=== PATIENT | male | born 1945 | race Caucasian/White ===

== ENCOUNTER 2017-07-12 13:47 | Emergency (ER) | payer MEDICARE ==
[2017-07-12 14:23] LABS: #Basophils 0.1 thou/uL (0.0-0.2); #Eosinphils 0.1 thou/uL (0.0-0.7); #Lymphocytes 2.3 thou/uL (1.20-3.40); #Monocytes 0.9 thou/uL (0.11-0.59); #Neutrophils 8.6 thou/uL (1.40-6.50); %Basophils 0.6 % (0.0-1.0); %Eosinophils 1.1 % (0.0-10.0); %Lymphocytes 19.3 % (21.0-51.0); %Monocytes 7.6 % (0.0-10.0); %Neutrophils 71.5 % (42.0-75.0); Hemoglobin 13.1 g/dL (14.0-18.0); Mean Corpuscular HGB CONC 32.5 g/dL (32.0-36.0); Mean Corpuscular Volume 95.5 fl (80.0-94.0); Platelet Count 245 thou/uL (130-400); RBC Distribution Width 11.8 % (11.5-14.5); Red Blood Cell (RBC) Count 4.23 mill/uL (4.70-6.10); White Blood Cell (WBC) Count 12.1 thou/uL (4.8-10.8)
--- NOTE | 2017-07-12 14:34 | RAD ---
LEFT FOOT THREE VIEWS: History: Left foot wound. Comparison: None. FINDINGS: There is left foot soft tissue swelling. Lisfranc alignment is maintained. No fracture. Joint spaces are preserved. Mild degenerative change in the first digit. Bony hypertrophy at the Achilles tendon insertion site. IMPRESSION: Nonspecific soft tissue swelling. POS: CARL
[2017-07-12 14:44] LABS: ALT (SGPT) 13 U/L (8-55); AST (SGOT) 15 U/L (5-34); Albumin 3.9 g/dL (3.4-4.8); Alkaline Phosphatase 32 U/L (40-150); Anion Gap 16 mmol/L (10-20); BUN (Urea Nitrogen) 17 mg/dL (8.4-25.7); Bilirubin, Total 1.5 mg/dL (0.2-1.2); Calc. Creatinine Clearance 0 mL/min (70-130); Calcium 9.4 mg/dL (7.8-10.44); Carbon Dioxide 20 mmol/L (23-31); Chloride 101 mmol/L (98-107); Estimated GFR-MDRD 63; Globulin 2.9 g/dL (2.4-3.5); Glucose 318 mg/dL (83-110); Potassium 4.4 mmol/L (3.5-5.1); Protein, Total 6.8 g/dL (5.8-8.1); Sodium 133 mmol/L (136-145)
[2017-07-12] MEDS ORDERED: Clindamycin/D5W 600 mg/50 ml Premix Bag ONE (15:05)
== END 2017-07-12 16:21 | disposition home or self-care (01) ==
LOC: ERS 13:47
DX: E11.621 Type 2 diabetes mellitus with foot ulcer (principal); L97.529 Non-pressure chronic ulcer of other part of left foot with unspecified severity; I10 Essential (primary) hypertension; E78.5 Hyperlipidemia, unspecified; L03.116 Cellulitis of left lower limb
CPT/HCPCS: 36415; 80053; 85025; 96365; J3490

== ENCOUNTER 2017-07-18 09:02 | Inpatient (IN) | payer MEDICARE ==
[2017-07-18 10:41] LABS: #Eosinphils 0.1 thou/uL (0.0-0.7); #Lymphocytes 2.1 thou/uL (1.20-3.40); #Monocytes 0.9 thou/uL (0.11-0.59); #Neutrophils 9.2 thou/uL (1.40-6.50); %Basophils 0.3 % (0.0-1.0); %Eosinophils 1.2 % (0.0-10.0); %Lymphocytes 16.9 % (21.0-51.0); %Monocytes 7.4 % (0.0-10.0); %Neutrophils 74.2 % (42.0-75.0); Hemoglobin 12.6 g/dL (14.0-18.0); Mean Corpuscular HGB CONC 32.2 g/dL (32.0-36.0); Mean Corpuscular Hemoglobin 30.4 pg (27.0-31.0); Mean Corpuscular Volume 94.6 fl (80.0-94.0); Platelet Count 254 thou/uL (130-400); RBC Distribution Width 11.9 % (11.5-14.5); Red Blood Cell (RBC) Count 4.13 mill/uL (4.70-6.10); White Blood Cell (WBC) Count 12.3 thou/uL (4.8-10.8)
[2017-07-18] MEDS ORDERED: cefTRIAXone\\ROCEPHIN 2 GM in Sodium Chloride 0.9% 100 ML IVPB SCH (10:45)
[2017-07-18 11:11] LABS: ALT (SGPT) 11 U/L (8-55); AST (SGOT) 16 U/L (5-34); Albumin 3.8 g/dL (3.4-4.8); Alkaline Phosphatase 29 U/L (40-150); Anion Gap 14 mmol/L (10-20); BUN (Urea Nitrogen) 14 mg/dL (8.4-25.7); Calc. Creatinine Clearance 89 mL/min (70-130); Calcium 9.6 mg/dL (7.8-10.44); Carbon Dioxide 24 mmol/L (23-31); Chloride 101 mmol/L (98-107); Estimated GFR-MDRD 68; Globulin 2.9 g/dL (2.4-3.5); Glucose 218 mg/dL (83-110); Potassium 4.3 mmol/L (3.5-5.1); Protein, Total 6.7 g/dL (5.8-8.1); Sodium 135 mmol/L (136-145)
--- NOTE | 2017-07-18 12:12 | ULT ---
LEFT LOWER EXTREMITY VENOUS DOPPLER ULTRASOUND: Date: 07/18/17 HISTORY: 71-mmol1pnd male with history of left leg swelling. TECHNIQUE: Multiple longitudinal and transverse images of the left lower extremity venous system obtained using a multihertz linear array transducer. Real-time, color flow, and spectral waveform Doppler analysis u sed to evaluate the left lower extremity venous systems. FINDINGS: Images demonstrate no evidence of acute or old clot seen in the left common femoral, superficial femo ral, femoral profunda, popliteal, posterior tibial vein, post-trifurcation vein, or left greater saph enous vein. IMPRESSION: No evidence of left lower extremity deep venous thrombosis. POS: JC
[2017-07-18] MEDS ORDERED: Acetaminophen 325 MG TAB PO PRN (14:15)
[2017-07-18] MEDS ORDERED: Ondansetron HCl/PF 4 MG/2 ML Vial IVP PRN ×2 (14:15→14:55)
[2017-07-18] MEDS ORDERED: Sodium Chloride 0.9% 1,000 ML IV SCH (14:15)
[2017-07-18] MEDS ORDERED: Ondansetron ODT 4 MG TAB PO PRN ×2 (14:15→14:55)
[2017-07-18] MEDS ORDERED: HYDROcodone/Acetaminophen 5/325 mg Tablet PO PRN ×2 (14:16)
[2017-07-18 14:23] VITALS: BMI 32.5
[2017-07-18] MEDS ORDERED: Dextrose 50% Abboject 50 ML SYRINGE SLOW IVP PRN (14:55)
[2017-07-18] MEDS ORDERED: cloNIDine 0.1 MG TAB PO PRN (14:55)
[2017-07-18] MEDS ORDERED: HumaLOG 300 UNITS/3 ML VIAL SC PRN (14:55)
[2017-07-18] MEDS ORDERED: hydrALAZINE 20 MG/ML VIAL SLOW IVP PRN (14:55)
[2017-07-18] MEDS ORDERED: traMADol HCl 50 MG TAB PO PRN (14:55)
[2017-07-18] MEDS ORDERED: Dextrose 5% in Water 1,000 ML IV PRN (14:55)
--- NOTE | 2017-07-18 16:11 | HP ---
DATE OF ADMISSION: 07/18/2017 PRIMARY CARE PHYSICIAN: Dr. Troy Hugo. CHIEF COMPLAINT: Left foot infection. HISTORY OF PRESENT ILLNESS: This is a 71-year-old male who presents to [facility] complaining of persistent left foot redness, discoloration to the toes and heel with r ed streaks up the lower leg. The patient states that the symptoms began as a small scratch on the lo wer leg approximately 3 weeks prior to this evaluation at which point patient sought medical attentio n and was placed on oral antibiotic therapy. The patient with a significant history of diabetes chan itus type 2 since diagnosed in the with poor control, stating his last hemoglobin A1c was in e 11 range. The patient was seen at the [facility] and received a single dose of IV antibiotic therapy and continued on oral antibiotics, following up with his primary care provider . The patient noticed progression of the ulceration to the heel expanding with some dark discolorati on as well as black areas of the great and second toe on the left foot. The patient denied any speci fic chills, fever, constitutional symptoms. The patient does state that he has had difficulty trimmi ng the nails on his foot with decreased vision due to longstanding uncontrolled diabetes. The patien t presented back to the emergency room, taking Cleocin for his home antibiotic regimen with worsening left foot swelling and redness. The patient's ex- became concerned after seeing the foot and br ought him to the emergency room for evaluation. In the emergency room, patient underwent general matteo luation including plain radiographs of the foot dated 07/12/2017 showing no osseous destruction. The patient received IV Rocephin and vancomycin and was referred to the Hospitalist Service for admissio n. PAST MEDICAL HISTORY: 1. Coronary artery disease. 2. Cardiomyopathy, status post AICD placement. 3. Peripheral vascular disease. 4. Peripheral neuropathy secondary to advanced diabetes mellitus type 2. 5. Diabetic retinopathy. 6. Diabetes mellitus type 2 on insulin requiring, diagnosed in the , uncontrolled. 7. Hyperlipidemia. 8. Hypertension. 9. Profound hearing loss. PAST SURGICAL HISTORY: 1. Status post coronary artery bypass grafting x4 vessels. 2. Status post hernia repair. 3. Status post AICD/pacemaker placement. CURRENT MEDICATIONS: 1. Norvasc 5 mg 1 tablet p.o. daily. 2. Lasix 40 mg p.o. daily p.r.n. 3. Gabapentin 100 mg 1 tab p.o. daily. 4. Amaryl 4 mg p.o. daily. 5. Glargine insulin 30 units subcutaneously daily. 6. Lisinopril 30 mg p.o. daily. 7. Lovastatin 40 mg p.o. daily. 8. Metformin 500 mg p.o. bedtime. ALLERGIES: No known drug allergies. FAMILY HISTORY: Positive for coronary artery disease and hypertension. SOCIAL HISTORY: Patient is , resides in the [place], [place] area. 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 No current alcohol, tobacco or illicit drug use. REVIEW OF SYSTEMS: The following complete review of systems was negative, unless otherwise mentioned in the HPI or below: Constitutional: Weight loss or gain, ability to conduct usual activities. Skin: Rash, itching. Eyes: Double vision, pain. ENT/Mouth: Nose bleeding, neck stiffness, pain, tenderness. Cardiovascular: Palpitations, dyspnea on exertion, orthopnea. Respiratory: Shortness of breath, wheezing, cough, hemoptysis, fever or night sweats. Gastrointestinal: Poor appetite, abdominal pain, heartburn, nausea, vomiting, constipation, or diarr hea. Genitourinary: Urgency, frequency, dysuria, nocturia. Musculoskeletal: Pain, swelling. Neurologic/Psychiatric: Anxiety, depression. Allergy/Immunologic: Skin rash, bleeding tendency. Otherwise negative except as stated per HPI. PHYSICAL EXAMINATION: VITAL SIGNS: On admission, blood pressure 121/70, pulse 82, respiratory rate 26, temperature 98.5 de grees Fahrenheit, O2 saturation is 96% on room air. GENERAL APPEARANCE: This is a 71-year-old male with profound hearing loss, alert, responsi ve, in no acute distress. HEENT: Pupils are equal, round, and reactive to light and accommodation. Extraocular muscles are in tact. No scleral icterus, no conjunctival injection. Nares patent. OP is clear. Teeth in fair rep air. NECK: Supple, no cervical adenopathy, no thyromegaly, no carotid bruits, no JVD appreciated. Cervic al spine is with full active and passive range of motion. No meningeal signs appreciated. CHEST: Lungs are clear to auscultation bilaterally. CARDIOVASCULAR: S1 and S2 with distant heart sounds. Left upper chest wall with AICD/pacemaker dalia ce. ABDOMEN: Protuberant, soft, nontender, and nondistended. Bowel sounds are positive in all four quad rants. There is no hepatosplenomegaly, no abdominal bruits, no rebound or guarding appreciated. EXTREMITIES: Left lower extremity with erythema to the ankle region. Positive edema of the same reg ion. Approximate quarter sized ulcer of the left heel with black discoloration of the base. Periphe ral erythema and raised borders noted. Positive tenderness to palpation in the calcaneal region. Bl ack eschar noted of the left great and second toe with edema desquamation and tenderness to palpation . Jesus region with erythematous streaks. Pulses are diminished at the dorsalis pedis and posterior tibial arteries on the left lower extremity. Hair loss noted on bilateral lower extremities. NEUROLOGIC: Cranial nerves II-XII are grossly intact with the exception of profound hearing loss. P atient not observed ambulatory during this exam. PERTINENT LABORATORY DATA AND X-RAY FINDINGS: Creatinine 1.07 with estimated GFR of 68, glucose 218, lactic acid level 2.0. Calcium 9.6, total bilirubin 2.0. LFT: AST 16, ALT of 11, alkaline phospha tase 29. CBC showed white blood cell count of 12.3, hemoglobin 13, hematocrit 39, platelet count 254 with normal differential. Left lower extremity venous Doppler study dated 07/18/2017 showed no DVT. Plain radiographs of the left foot dated 07/12/2017 showed nonspecific soft tissue edema. ASSESSMENT AND PLAN: 1. Left diabetic foot ulceration/gangrene. The patient will be admitted to the medical floor. We w ill continue vancomycin 1 gram IV q.12 hours with additional Rocephin 2 grams IV q.24 hours. We will consult Wound Care Service for local care and evaluation. Consult General Surgery Service for poten tial surgical intervention and potential amputation. Blood cultures pending x2. Continue general mccain pportive measures and pain control as clinically indicated. 2. Diabetes mellitus type 2 with advanced diabetic neuropathy and retinopathy. We will continue selene e insulin regimen of glargine 30 units subcutaneously daily. Insulin sliding scale for reflexive cov erage. Check A1c level in the a.m. Accu-Cheks a.c. and at bedtime. 3. Hypertension. Resume home antihypertensive regimen and monitor clinical response. 4. Peripheral neuropathy. Continue gabapentin 100 mg p.o. daily. 5. Coronary artery disease, chronic and stable. We will continue home medication regimen. No evide nce to suggest clinical decompensation. 6. Prophylaxis. Lovenox 40 mg subcutaneously q.24 hours, Pepcid 20 mg p.o. b.i.d. Wound Care consu lt pending. 7. Code status is FULL. Surrogate medical decision maker is patient's son.
[2017-07-18] MEDS: HumaLOG 300 UNITS/3 ML VIAL SC PRN (17:28)
[2017-07-18] MEDS: metFORMIN 500 MG TAB PO SCH (17:28)
[2017-07-18] MEDS: Famotidine 20 MG TAB PO SCH (20:36)
[2017-07-18] MEDS ORDERED: FLU VACC TS2017-18 (>65YR) 0.5 ML SYRINGE IM ONE (21:00)
[2017-07-18] MEDS: Vancomycin HCl 1 GM in Premix Bag 1 BAG IVPB SCH (22:36)
[2017-07-19 05:15] LABS: Hemoglobin A1c 10.1 % (4.0-6.0)
[2017-07-19 05:25] LABS: ALT (SGPT) 10 U/L (8-55); AST (SGOT) 12 U/L (5-34); Albumin 3.5 g/dL (3.4-4.8); Alkaline Phosphatase 29 U/L (40-150); Anion Gap 12 mmol/L (10-20); BUN (Urea Nitrogen) 12 mg/dL (8.4-25.7); Bilirubin, Total 1.1 mg/dL (0.2-1.2); Calc. Creatinine Clearance 97 mL/min (70-130); Calcium 9.1 mg/dL (7.8-10.44); Carbon Dioxide 23 mmol/L (23-31); Chloride 103 mmol/L (98-107); Estimated GFR-MDRD 80; Globulin 2.7 g/dL (2.4-3.5); Glucose 272 mg/dL (83-110); Potassium 4.3 mmol/L (3.5-5.1); Protein, Total 6.2 g/dL (5.8-8.1); Sodium 134 mmol/L (136-145)
[2017-07-19 05:56] LABS: Eosinophils 3 % (0-10); Hemoglobin 12.1 g/dL (14.0-18.0); Lymphocytes 37 % (21-51); MDiff Complete? YES; Macrocytosis SLIGHT = 6-15 cells (100X) (0-5/hpf); Mean Corpuscular HGB CONC 33.2 g/dL (32.0-36.0); Mean Corpuscular Hemoglobin 31.5 pg (27.0-31.0); Mean Corpuscular Volume 94.9 fl (80.0-94.0); Mean Platelet Volume 8.5 fL (7.4-10.4); Monocytes 4 % (0-10); Neutrophil 56 % (42-75); PLT Morphology Comment Appears Adequate; Platelet Count 233 thou/uL (130-400); RBC Distribution Width 11.8 % (11.5-14.5); Red Blood Cell (RBC) Count 3.84 mill/uL (4.70-6.10); White Blood Cell (WBC) Count 9.8 thou/uL (4.8-10.8)
[2017-07-19] MEDS: Glimepiride 4 MG TAB PO SCH (07:59)
[2017-07-19] MEDS: Insulin Detemir 100 UNITS/ML 30 UNITS in Pre-Filled Syringe 1 EACH SC SCH (08:39)
[2017-07-19] MEDS: Enoxaparin Sodium 40 MG/0.4 ML SYRINGE SC SCH (08:41)
[2017-07-19] MEDS: Amlodipine 5 MG TAB PO SCH (08:42)
[2017-07-19] MEDS: Famotidine 20 MG TAB PO SCH ×2 (08:42→20:27)
[2017-07-19] MEDS: Gabapentin 100 MG CAP PO SCH (08:42)
[2017-07-19] MEDS: Atorvastatin Calcium 10 MG TAB PO SCH (08:42)
[2017-07-19] MEDS: Lisinopril 10 MG TAB PO SCH (08:43)
[2017-07-19] MEDS ORDERED: Non-Formulary Item 1 EACH (Insulin Glargine,Hum.Rec.Anlog 30 UNIT) SQ SCH (09:00)
[2017-07-19] MEDS: Vancomycin HCl 1 GM in Premix Bag 1 BAG IVPB SCH ×2 (11:52→23:36)
--- NOTE | 2017-07-19 12:58 | CON ---
DATE OF CONSULTATION: 07/19/2017 REQUESTING PHYSICIAN: Dr. Raoul Beasley. PRIMARY CARE PHYSICIAN: Dr. Troy Hugo. CHIEF COMPLAINT: Dry gangrenous changes involving the left foot. HISTORY OF PRESENT ILLNESS: The patient is a 71-year-old diabetic man, who underwent coronary artery bypass grafting several years ago. He has also undergone AICD implantation for cardiomyopathy. Ove r the last 1-2 months, he has been having pain involving his left foot. He denies any antecedent cla udication or rest pain symptoms. To the best of his knowledge, he had no local trauma. Initially, h e began developing ulceration, progressing to dry dark eschar on the heel of that foot. He then bega n developing similar eschars on the tips of the first and second toes. He was started on oral antibi otics about a week ago, but over the course of the week, the pain, redness, and swelling increased an d he presented to the emergency room here yesterday. He was started on IV Rocephin and vancomycin an d with that and leg elevation, the erythema and swelling in his foot have dramatically improved. The pain is improved only modestly. He denies any improvement in the pain with allowing his foot dangle dependently or with walking short distances. PAST MEDICAL HISTORY: Significant for his coronary artery disease, his cardiomyopathy with an AICD p lacement. He has peripheral neuropathy, macular degeneration and perhaps diabetic retinopathy, diabe perry, hyperlipidemia, hypertension, and hearing loss. HOME MEDICATIONS: His normal home medications are Norvasc 5 mg a day, Lasix 40 mg p.r.n. swelling, N eurontin 100 mg a day, Amaryl 4 mg a day, metformin 500 mg at bedtime. Glargine insulin 30 units sub cutaneously daily, lisinopril 30 mg a day, and lovastatin 40 mg a day. ALLERGIES: He denies any medical allergies. SOCIAL HISTORY: He does not smoke. FAMILY HISTORY: Significant for coronary artery disease and hypertension. REVIEW OF SYSTEMS: Negative for orthopnea, but positive for dyspnea on exertion at about class 2-3 l evel saying gets short of breath walking about 100 yards, but he is able to do his grocery shopping w ithout the use of a motorized scooter. Negative for any chest pain, pressure, or squeezing. Negativ e for any transient eyes, speech, facial, or extremity symptoms to suggest TIAs. It is positive for poor vision and poor hearing. PHYSICAL EXAMINATION: GENERAL: On exam, he is obviously hard of hearing. He is in no distress. VITAL SIGNS: Heart rate is 76, blood pressure 128/79, temperature 98.3, T-max over the last 24 hours has been 98.6. He has no obvious xanthelasma. NECK: No JVD. He has loud right carotid bruit. CARDIOVASCULAR: He has a regular rate and rhythm without any obvious murmur or gallop. He has a pal pable AICD generator in the left upper chest. He has a well-healed surgical scar, status post median sternotomy, and status post left lower extremity vein harvest. ABDOMEN: Soft and nontender without any obvious organomegaly, masses, or bruits. EXTREMITIES: He has easily palpable radial pulses bilaterally. His right femoral pulse is perhaps s lightly diminished. His left femoral pulse is dramatically diminished. Neither are associated with bruits. I was not able to palpate popliteal or pedal pulses. On the right side, capillary refill is about 1 to 1-1/2 seconds with fairly easily dopplerable dorsalis pedis and posterior tibial pulses a nd even a peroneal pulse unable to find. On the left side, his posterior tibial pulse is very faint. I was not able to find dorsalis pedis pulse. He has a very faint peroneal pulse. On the left side , he has some faint erythema and mild swelling. He has a fairly large eschar on the posteromedial as pect of his left heel and on the tips of the first and second toes with more advanced desiccation on the second toe than on the first. Capillary refill is 1-1/2-2 seconds. NEUROLOGIC EXAM: Grossly nonfocal. A foot x-ray from about a week ago had no obvious soft tissue de fects or osseous destruction. He has not had a chest x-ray this hospitalization as yet. LABORATORY AND X-RAY FINDINGS: Swab of his open wound on his left foot has rare white cells, 4 on sm ear, and a moderate growth of gram-negative bacillus on culture. Blood cultures drawn yesterday are no growth so far. White count was 12.3, hemoglobin 12.6, hematocrit 39.0, platelets 254,000. Electr olytes were normal. Glucose was 218, BUN 14, creatinine 1.07. Overnight, his BUN was 13 and creatin ine 0.93, but his glucose was 272 with all of his Accu-Cheks being in the mid to high 200 ranges. He moglobin A1c this morning was 10.1. IMPRESSION AND RECOMMENDATIONS: Peripheral vascular disease with ischemic tissue loss. The patient has adequate renal function. He at least has inflow disease. I have spoken with Dr. Alexandra about per forming an aortogram with runoffs to map out anatomy, and come up with a plan for revascularization f or limb salvage.
--- NOTE | 2017-07-19 13:51 | RAD ---
TWO VIEWS CHEST: COMPARISON: 11/17/07. HISTORY: Cardiomyopathy. FINDINGS: Stable sternotomy wires and a left-sided transvenous defibrillator. Normal cardiac silhouette. Pulm onary vessels and hilum are normal. Minimal blunting of the left costophrenic angle likely due to sm all effusion or atelectasis. Right costophrenic angle is clear. No consolidation or masses in the l maria esther parenchyma. No pneumothorax. No osseous abnormalities. IMPRESSION: Blunting of the left costophrenic angle as described above. POS: CARL
[2017-07-19] MEDS: cefTRIAXone\\ROCEPHIN 2 GM in Sodium Chloride 0.9% 100 ML IVPB SCH (15:24)
--- NOTE | 2017-07-19 17:06 | PDOC.PN ---
- Subjective Encounter Start Date: 07/19/17 Encounter Start Time: 17:00 Subjective: f/u for L foot/toe gangrene. Plan for vascular study to ascertain flow -: distally. c/o pain in foot and lower leg. No fever or chills. Currently on -: Vancomyin and Rocephin. - Objective Resuscitation Status: Resuscitation Status FULL:Full Resuscitation MAR Reviewed: Yes Vital Signs & Weight: Vital Signs (12 hours) Temp Pulse Resp BP BP Pulse Ox 07/19/17 08:43 128/79 07/19/17 08:42 76 07/19/17 08:25 98.3 F 76 18 128/79 98 07/19/17 08:00 98.3 F 76 18 98 Weight Admit Weight 207 lb 6.4 oz Weight 207 lb 14.4 oz I&O: 07/18/17 07/19/17 07/20/17 06:59 06:59 06:59 Intake Total 680 240 Balance 680 240 Result Diagrams: 07/19/17 04:41 07/19/17 04:41 Additional Labs: Accuchecks 07/19/17 07/19/17 07/18/17 12:02 04:25 20:30 POC Glucose 201 H 253 H 274 H 07/18/17 16:35 POC Glucose 231 H Microbiology 07/18/17 10:54 Foot - Pending Bacterial Culture - Preliminary Gram Negative Cristopher 07/18/17 10:31 Venous blood - Right Arm Blood Culture - Preliminary Specimen has been received and culture in progress. No Growth to date. 07/18/17 10:25 Venous blood - Left Hand Blood Culture - Preliminary Specimen has been received and culture in progress. No Growth to date. Laboratory Tests 07/19/17 04:41 Hemoglobin A1c 10.1 H Radiology Reviewed by me: Yes (PCXR - no acute process) Phys Exam - Physical Examination Constitutional: NAD HEENT: PERRLA, oral pharynx no lesions Neck: no JVD, supple Respiratory: no wheezing, clear to auscultation bilateral Cardiovascular: RRR Gastrointestinal: soft, non-tender, no distention, positive bowel sounds distal pulses of bilat LE's non-palpable LLE with dry gangrene great/2nd toe/heel Musculoskeletal: edema present Neurological: moves all 4 limbs Psychiatric: A&O x 3 Skin: normal turgor, cap refill <2 seconds Dx/Plan (1) Diabetic foot ulcer Code(s): E11.621 - TYPE 2 DIABETES MELLITUS WITH FOOT ULCER; L97.509 - NON- PRESSURE CHRONIC ULCER OTH PRT UNSP FOOT W UNSP SEVERITY Status: Acute Qualifiers: Diabetic foot ulcer location: toe Comment: Continue Vancomycin and Rocephin, local WCT, plan for surgical intervention after ascertaining distal flow, Hyperbaric therapy (2) Gangrene of left foot Code(s): I96 - GANGRENE, NOT ELSEWHERE CLASSIFIED Status: Acute Comment: See #1 (3) Peripheral vascular disease due to secondary diabetes Code(s): E13.51 - OTH DIABETES W DIABETIC PERIPHERAL ANGIOPATHY W/O GANGRENE Status: Chronic Comment: Aortogram with runoff planned 07/20/17 (4) Diabetes mellitus type II, uncontrolled Code(s): E11.65 - TYPE 2 DIABETES MELLITUS WITH HYPERGLYCEMIA Status: Chronic Qualifiers: Diabetes mellitus complication status: with circulatory complication Diabetes mellitus complication detail: with peripheral angiopathy with gangrene Comment: ISS, ADA, titrate Insulin regimen, dietitian counseling (5) Diabetic neuropathy Code(s): E11.40 - TYPE 2 DIABETES MELLITUS WITH DIABETIC NEUROPATHY, UNSP Status: Chronic Comment: See above - Plan continue antibiotics, PT/OT, foster care social worker Stable overall -: Continue Vancomycin and Rocephin -: Local WCT -: Appreciate Gen and Vasc surg assistance -: Aortogram with runoff 07/20/17 * AM lab: BMP * Morphine Sulfate 2mg IV q4h prn pain
[2017-07-19] MEDS: metFORMIN 500 MG TAB PO SCH (17:50)
[2017-07-19] MEDS: HumaLOG 300 UNITS/3 ML VIAL SC PRN (17:51)
[2017-07-19] MEDS ORDERED: Morphine 2 MG/ML SYRINGE SLOW IVP PRN (22:48)
[2017-07-19 22:52] LABS: Vancomycin, Trough 10.8 ug/mL
[2017-07-19] MEDS ORDERED: Vancomycin HCl 1.5 GM in Sodium Chloride 0.9% 250 ML 300 ML IVPB SCH (23:00)
[2017-07-19] MEDS: Vancomycin HCl 1.5 GM in Sodium Chloride 0.9% 250 ML 300 ML IVPB SCH (23:40)
[2017-07-20 05:56] LABS: Anion Gap 12 mmol/L (10-20); BUN (Urea Nitrogen) 13 mg/dL (8.4-25.7); Calc. Creatinine Clearance 94 mL/min (70-130); Calcium 9.2 mg/dL (7.8-10.44); Carbon Dioxide 24 mmol/L (23-31); Chloride 101 mmol/L (98-107); Estimated GFR-MDRD 77; Glucose 312 mg/dL (83-110); Potassium 4.3 mmol/L (3.5-5.1); Sodium 133 mmol/L (136-145)
[2017-07-20] MEDS: Glimepiride 4 MG TAB PO SCH (08:30)
[2017-07-20] MEDS: Lisinopril 10 MG TAB PO SCH (08:30)
[2017-07-20] MEDS: Amlodipine 5 MG TAB PO SCH (08:30)
[2017-07-20] MEDS: Atorvastatin Calcium 10 MG TAB PO SCH (08:30)
[2017-07-20] MEDS: Famotidine 20 MG TAB PO SCH ×2 (08:30→20:10)
[2017-07-20] MEDS: Enoxaparin Sodium 40 MG/0.4 ML SYRINGE SC SCH (08:30)
[2017-07-20] MEDS: Insulin Detemir 100 UNITS/ML 30 UNITS in Pre-Filled Syringe 1 EACH SC SCH (08:30)
[2017-07-20] MEDS: Gabapentin 100 MG CAP PO SCH (08:30)
--- NOTE | 2017-07-20 09:39 | CON ---
DATE OF CONSULTATION: 07/19/2017 HISTORY OF PRESENT ILLNESS: Mr. Mauricio Lezama is a very pleasant 71-year-old gentleman referred fo r evaluation for hyperbaric oxygen therapy. The patient's medical history is significant for diabete s mellitus and peripheral vascular disease. The patient is referred for evaluation for a trial of hy perbaric oxygen therapy to augment the healing of an ulceration of the left heel. The patient's ex-w south states that Mr. Lezama was seen in [place] in an emergency department and administered IV antib iotics on 06/24/2017. The patient was also placed on p.o. antibiotics. At a followup visit with his primary care physician, the patient was referred immediately to the Emergency Department at [facility] and at this time, the patient was given additional IV antibiotics and again placed on p.o. antibiotics. The patient's ex- states that yesterday she brought Mr. Lezama to the Emergency Department again because of erythema, edema, and pain of his left lower extremity and at this time being, patient was admitted for further evaluation and treatment. PAST MEDICAL HISTORY: 1. Coronary artery disease. 2. Cardiomyopathy, status post AICD placement. 3. Peripheral vascular disease. 4. Diabetes mellitus. 5. Hypertension. PAST SURGICAL HISTORY: 1. Coronary artery bypass grafting. 2. Herniorrhaphy. 3. AICD placement. 4. Penile implant. MEDICATIONS ON ADMISSION: Norvasc, Lasix, gabapentin, Amaryl, insulin, lisinopril, lovastatin and me tformin. ALLERGIES: No known diagnosed allergies. SOCIAL HISTORY: Negative for tobacco use. The patient admits to the consumption of 2 drinks per day for the past 8 years. FAMILY HISTORY: Significant for diabetes mellitus. The patient's father and mother were both diagno sed with diabetes mellitus. Family history is also significant for coronary artery disease. The pat glenda's father was diagnosed with coronary artery disease. PHYSICAL EXAMINATION: VITAL SIGNS: Stable and afebrile. GENERAL: A 71-year-old gentleman sitting on chair in hospital room in no acute distress. HEENT: Normocephalic, atraumatic. NECK: No nuchal rigidity. CHEST: Clear to auscultation. CARDIOVASCULAR: Regular rate and rhythm. ABDOMEN: Soft. EXTREMITIES: An ulceration of the left heel is present. An ulceration of the left great toe is also present in addition to an ulceration of the left second toe. Gangrenous changes are associated with each ulcerations. No serous or purulent drainage is associated with any of the wounds. No macerati on of the skin of the periwound of any of the wounds is noted. No significant edema of the left foot is appreciated on exam today. ASSESSMENT AND PLAN: A 71-year-old gentleman with past medical history significant for diabetes chan itus and peripheral vascular disease referred for evaluation for hyperbaric oxygen therapy to augment the healing of an ulceration of the left heel. The patient has ulcerations of the left great toe an d left second toe in addition to the left heel ulceration. The patient is to undergo aortogram with left lower extremity runoff tomorrow. A TCOM study will then be obtained along with chamber study if necessary. Transthoracic echo will also be obtained to ensure that the patient is a suitable candid ate for a trial of hyperbaric oxygen therapy. The patient denies any history of seizures, crushing c hest trauma, pneumothorax, recent retinal surgery, blood disorders including hereditary spherocytosis or the administration of any chemotherapeutic agents which would contraindicate a trial of hyperbari c oxygen therapy. The patient understands the risks and benefits of hyperbaric oxygen therapy and wi shes to proceed. The patient will be treated at 2.0 YULIANA with each session to consist of 90 minutes. The length of therapy will depend upon the patient's response to therapy in conjunction with serial clinical exams.
[2017-07-20] MEDS: cefTRIAXone\\ROCEPHIN 2 GM in Sodium Chloride 0.9% 100 ML IVPB SCH (10:41)
[2017-07-20] MEDS: Vancomycin HCl 1.5 GM in Sodium Chloride 0.9% 250 ML 300 ML IVPB SCH ×2 (11:45→23:01)
[2017-07-20] MEDS ORDERED: Iopamidol 370 76% 50 ML VIAL FS ONE (11:55)
[2017-07-20] MEDS ORDERED: Fentanyl 100 MCG/2 ML VIAL ONE (14:04)
[2017-07-20] MEDS ORDERED: Midazolam HCl 2 mg/2 ml Vial ONE ×2 (14:04→15:04)
--- NOTE | 2017-07-20 14:42 | PDOC.PN ---
- Subjective Encounter Start Date: 07/20/17 Encounter Start Time: 14:51 Subjective: No complaints today. Reports pain well controlled. -: No acute events overnight. - Objective Resuscitation Status: Resuscitation Status FULL:Full Resuscitation MAR Reviewed: Yes Vital Signs & Weight: Vital Signs (12 hours) Temp Pulse Resp BP BP Pulse Ox 07/20/17 08:30 75 128/79 07/20/17 08:00 98.3 F 78 16 137/75 95 Weight Admit Weight 207 lb 6.4 oz Weight 207 lb 14.4 oz I&O: 07/19/17 07/20/17 07/21/17 06:59 06:59 06:59 Intake Total 680 1080 Balance 680 1080 Result Diagrams: 07/19/17 04:41 07/20/17 05:04 Additional Labs: Accuchecks 07/20/17 07/20/17 07/19/17 11:16 04:11 20:31 POC Glucose 275 H 318 H 259 H 07/19/17 16:56 POC Glucose 276 H Phys Exam - Physical Examination Constitutional: NAD HEENT: PERRLA, moist MMs, sclera anicteric Neck: supple, full ROM Respiratory: no wheezing, no rales, no rhonchi, clear to auscultation bilateral Cardiovascular: RRR, no significant murmur, no rub Gastrointestinal: soft, non-tender, no distention, positive bowel sounds Musculoskeletal: no edema 1+ pulses b/l Gangrene L first and second toes Neurological: non-focal, moves all 4 limbs Psychiatric: normal affect, A&O x 3 Skin: no rash, normal turgor Dx/Plan (1) Peripheral vascular disease due to secondary diabetes Code(s): E13.51 - OTH DIABETES W DIABETIC PERIPHERAL ANGIOPATHY W/O GANGRENE Status: Chronic Comment: Has ischemic tissue loss/ Aortogram with runoff planned 07/20/17. Will f/u report. (2) Gangrene of left foot Code(s): I96 - GANGRENE, NOT ELSEWHERE CLASSIFIED Status: Acute Comment: As above. (3) Diabetes mellitus type II, uncontrolled Code(s): E11.65 - TYPE 2 DIABETES MELLITUS WITH HYPERGLYCEMIA Status: Chronic Qualifiers: Diabetes mellitus complication status: with circulatory complication Diabetes mellitus complication detail: with peripheral angiopathy with gangrene Diabetes mellitus buttermilk drier operator insulin use: with buttermilk drier operator use Qualified Code( s): E11.52 - Type 2 diabetes mellitus with diabetic peripheral angiopathy with gangrene; E11.65 - Type 2 diabetes mellitus with hyperglycemia; E11.65 - Type 2 diabetes mellitus with hyperglycemia; E11.65 - Type 2 diabetes mellitus with hyperglycemia; E11.65 - Type 2 diabetes mellitus with hyperglycemia; Z79.4 - buttermilk drier operator (current) use of insulin; Z79.4 - snf (current) use of insulin; Z79.4 - buttermilk drier operator (current) use of insulin; Z79.4 - buttermilk drier operator (current) use of insulin Plan: Increase metformin to 500 mg BID Continue detemir, sliding scale insulin Comment: Uncontrolled. ISS, ADA, titrate Insulin regimen, dietitian counseling (4) Diabetic neuropathy Code(s): E11.40 - TYPE 2 DIABETES MELLITUS WITH DIABETIC NEUROPATHY, UNSP Status: Chronic Qualifiers: Diabetes mellitus type: type 2 Diabetes mellitus complication detail: diabetic polyneuropathy Qualified Code(s): E11.42 - Type 2 diabetes mellitus with diabetic polyneuropathy Plan: Continue Gabapentin Comment: See above - Plan cont current plan of care, plan discussed w/ family, continue antibiotics, DVT proph w/lovenox * .
[2017-07-20] MEDS ORDERED: Heparin 10,000 UNITS/1 ML VIAL ONE (14:46)
[2017-07-20] MEDS: metFORMIN 500 MG TAB PO SCH (18:32)
--- NOTE | 2017-07-20 18:59 | OP ---
DATE OF PROCEDURE: 07/20/2017 PREOPERATIVE DIAGNOSES: Peripheral vascular disease with left foot rest pain and ulceration. POSTOPERATIVE DIAGNOSES: Peripheral vascular disease with left foot rest pain and ulceration. PROCEDURES: 1. Ultrasound guided right femoral artery access. 2. Abdominal aortogram in 2 locations. 3. Left external iliac, left common femoral artery, left superficial femoral artery, left popliteal artery and left anterior tibial artery angiogram with left leg runoff. 4. Left anterior tibial artery ELEMENT SETTER with a 2.5 x 100 [place] balloon in two locations taken to 14 mmHg for 2 minutes at each inflation. 5. Left popliteal artery ELEMENT SETTER with a 4 x 100 [place] followed by 4 x 80 Lutonix balloon inflated to 10 mmHg for 3 minutes. 6. Left superficial femoral artery ELEMENT SETTER with a 4 x 100 [place] followed by a 5 x 60 Lutonix drug-eluting balloon taken to 10 mmHg for 3 minutes. SURGEON: Josué Alexandra M.D. ANESTHESIA: A 1% lidocaine for local -- 3 mg of Versed -- 50 mcg fentanyl for IV sedation. TOTAL CONTRAST: 50 mL. TOTAL FLUOROSCOPY TIME: 17 minutes. DESCRIPTION OF PROCEDURE: After consent was obtained, the patient was brought to the geotechnical laboratory technician and placed in supine position on the geotechnical laboratory technician table. Appropriate monitoring was placed. IV sedation was begun. Groins were prepped and draped in usual sterile fashion. Right groin was anesthetized using ultrasound guidance with 1% lidocaine. Percutaneous access to the common femoral artery was performed using ultrasound guidance and a 5-Burundian sheath passed. The Contra catheter was passed into the upper abdominal aorta. Hand- injected aortogram was performed eliminating the aorta and proximal iliac vasculature. Renal arteries were patent bilaterally. The aorta and common iliac arteries were patent bilaterally. The aortic bifurcation was steep. Contra catheter was withdrawn to the aortic bifurcation. Hand injected aortogram was again performed eliminating the iliac vasculature. Common internal and external iliac arteries were widely patent bilaterally. The Contra catheter was guided over the aortic bifurcation. Due to the steepness of bifurcation, the Contra catheter would not track. Therefore, a stiff Glidewire and angled glide catheter were used to traverse the aortic bifurcation. Tip of the glide catheter was positioned in the external iliac artery. Hand injected arteriogram was performed eliminating proximal femoral artery. Common femoral, profunda femoris, and superficial femoral arteries were all widely patent. The catheter was guided down into the common femoral artery. Digital angiography was used to espinoza contrast from the femoral down towards the foot. Hand injected arteriogram was performed with the tip of the catheter into the common femoral artery. The superficial femoral artery was patent. The mid superficial femoral artery had approximately 5 cm segment of very tight stenosis in multiple areas. The popliteal artery was patent, but again at the level of the knee joint had an approximately 5 cm area of tight stenosis. At the level of the trifurcation, the contrast played out. We were able to guide the angled glide catheter through the areas of stenoses utilizing a stiff angle Glidewire. Hand injected arteriogram performed of tip catheter in the popliteal artery eliminating the tibial arteries. The peroneal and posterior tibial arteries were chronically occluded. Anterior tibial artery was patent, although diseased proximally. It was occluded and reconstituted after short segment occlusion with runoff down into the foot. The patient was given 5000 units of heparin followed by 2500 units of heparin later in the case. Over the angled stiff Glidewire, the 5-Burundian sheath was removed and a 5- Burundian destination sheath placed with its tip in the common femoral artery. Utilizing the angled glide catheter and an angled Glidewire, the anterior tibial artery was cannulated and we were able to traverse the area of occlusion. [place] catheter was then passed over the angled Glidewire down into the anterior tibial artery. Hand injected arteriogram was performed eliminating the anterior tibial artery which fed the foot. An 0.014 loose wire was then placed and the [place] catheter removed. We selected a 2.5 x 100 balloon which was inflated in 2 separate areas treating the anterior tibial artery for about half of its proximal length. Followup angiogram with tip of the catheter in the distal popliteal artery showed an excellent result from the angioplasty. We selected a 4 x 100 [place] balloon for initial angioplasty of the distal popliteal artery. This was inflated and held for 2 minutes. We then selected a 4 x 80 Lutonix drug-eluting balloon to treat the distal popliteal artery. This was held and inflated for 3 minutes to 10 mmHg. Followup angiogram showed an excellent result, we selected the 4 x 100 [place] balloon again to treat the mid superficial femoral artery. This was inflated to 14 mmHg and held for 2 minutes. We then selected a 5 x 60 Lutonix drug- eluting balloon to treat this same area in the mid SFA. Followup angiogram showed an excellent result. Guidewires and catheters were removed. The sheath was guided back over the aortic bifurcation with a [employer] guidewire, which was then placed in the abdominal aorta. Sheath was removed and ProGlide placed and deployed. There was good hemostasis. Patient was transferred to the recovery area in stable condition inside. [facility]
[2017-07-21] MEDS: HumaLOG 300 UNITS/3 ML VIAL SC PRN ×3 (04:50→16:46)
[2017-07-21] MEDS: Atorvastatin Calcium 10 MG TAB PO SCH (08:50)
[2017-07-21] MEDS: Clopidogrel Bisulfate 75 MG TAB PO SCH (08:50)
[2017-07-21] MEDS: Aspirin 81 mg Enteric Coated Tablet PO SCH (08:51)
[2017-07-21] MEDS: Gabapentin 100 MG CAP PO SCH (08:51)
[2017-07-21] MEDS: Amlodipine 5 MG TAB PO SCH (08:51)
[2017-07-21] MEDS: Famotidine 20 MG TAB PO SCH ×2 (08:51→21:15)
[2017-07-21] MEDS: Insulin Detemir 100 UNITS/ML 30 UNITS in Pre-Filled Syringe 1 EACH SC SCH (08:51)
[2017-07-21] MEDS: metFORMIN 500 MG TAB PO SCH ×2 (08:51→16:46)
[2017-07-21] MEDS: Glimepiride 4 MG TAB PO SCH (08:51)
[2017-07-21] MEDS: Enoxaparin Sodium 40 MG/0.4 ML SYRINGE SC SCH (08:51)
[2017-07-21] MEDS: Lisinopril 10 MG TAB PO SCH (09:00)
[2017-07-21] MEDS: Acetaminophen 500 MG TAB PO PRN ×2 (09:00→16:53)
[2017-07-21 10:28] LABS: Vancomycin, Trough 18.1 ug/mL
[2017-07-21] MEDS: Vancomycin HCl 1.5 GM in Sodium Chloride 0.9% 250 ML 300 ML IVPB SCH ×2 (11:32→23:38)
[2017-07-21] MEDS: cefTRIAXone\\ROCEPHIN 2 GM in Sodium Chloride 0.9% 100 ML IVPB SCH (11:32)
--- NOTE | 2017-07-21 15:06 | PDOC.PN ---
- Subjective Encounter Start Date: 07/21/17 Encounter Start Time: 15:10 Subjective: No new complaints. -: no acute events overnight. - Objective Resuscitation Status: Resuscitation Status FULL:Full Resuscitation Vital Signs & Weight: Vital Signs (12 hours) Temp Pulse Resp BP Pulse Ox 07/21/17 11:06 97.3 F L 63 20 144/71 H 97 07/21/17 08:00 97.9 F 99 16 07/21/17 07:56 97.9 F 99 16 122/65 95 07/21/17 05:33 98.9 F 84 18 166/67 H 97 Weight Admit Weight 207 lb 6.4 oz Weight 207 lb 14.4 oz I&O: 07/20/17 07/21/17 07/22/17 06:59 06:59 06:59 Intake Total 1080 800 Output Total 275 Balance 1080 525 Result Diagrams: 07/19/17 04:41 07/20/17 05:04 Additional Labs: Accuchecks 07/21/17 07/21/17 07/20/17 11:02 04:47 20:36 POC Glucose 271 H 270 H 331 H 07/20/17 18:26 POC Glucose 222 H Phys Exam - Physical Examination Constitutional: NAD HEENT: PERRLA, moist MMs, sclera anicteric Neck: supple, full ROM Respiratory: no wheezing, no rales, no rhonchi, clear to auscultation bilateral Cardiovascular: RRR, no significant murmur, no rub Gastrointestinal: soft, non-tender, no distention, positive bowel sounds Musculoskeletal: no edema reduced pulsed b/l, dry gangrene toes-1st and 2nd digit Neurological: non-focal, moves all 4 limbs Psychiatric: normal affect, A&O x 3 Skin: no rash, normal turgor Dx/Plan (1) Gangrene of left foot Code(s): I96 - GANGRENE, NOT ELSEWHERE CLASSIFIED Status: Acute Comment: Has ischemic tissue loss/ Aortogram done 07/20/17. Being planned for hyperbaric O2 therapy . f/u TTE result. Continue Vancomycin (2) Peripheral vascular disease due to secondary diabetes Code(s): E13.51 - OTH DIABETES W DIABETIC PERIPHERAL ANGIOPATHY W/O GANGRENE Status: Chronic Comment: As above (3) Diabetes mellitus type II, uncontrolled Code(s): E11.65 - TYPE 2 DIABETES MELLITUS WITH HYPERGLYCEMIA Status: Chronic Qualifiers: Diabetes mellitus complication status: with circulatory complication Diabetes mellitus complication detail: with peripheral angiopathy with gangrene Diabetes mellitus adjunct faculty for medical terminology insulin use: with adjunct faculty for medical terminology use Qualified Code( s): E11.52 - Type 2 diabetes mellitus with diabetic peripheral angiopathy with gangrene; E11.65 - Type 2 diabetes mellitus with hyperglycemia; E11.65 - Type 2 diabetes mellitus with hyperglycemia; E11.65 - Type 2 diabetes mellitus with hyperglycemia; E11.65 - Type 2 diabetes mellitus with hyperglycemia; Z79.4 - keno terminal operator (current) use of insulin; Z79.4 - keno terminal operator (current) use of insulin; Z79.4 - USP (current) use of insulin; Z79.4 - keno terminal operator (current) use of insulin Comment: Uncontrolled. ISS, ADA, titrate Insulin regimen, dietitian counseling Meftormin started, glimepiride continued. Will Monitor. (4) Diabetic neuropathy Code(s): E11.40 - TYPE 2 DIABETES MELLITUS WITH DIABETIC NEUROPATHY, UNSP Status: Chronic Qualifiers: Diabetes mellitus type: type 2 Diabetes mellitus complication detail: diabetic polyneuropathy Qualified Code(s): E11.42 - Type 2 diabetes mellitus with diabetic polyneuropathy Comment: See above - Plan cont current plan of care, DVT proph w/lovenox * .
[2017-07-21 21:45] VITALS: BP 135/78; TEMP 98.3
[2017-07-22 04:31] LABS: #Eosinphils 0.5 thou/uL (0.0-0.7); #Lymphocytes 1.9 thou/uL (1.20-3.40); #Neutrophils 7.8 thou/uL (1.40-6.50); %Basophils 0.4 % (0.0-1.0); %Eosinophils 4.1 % (0.0-10.0); %Lymphocytes 16.7 % (21.0-51.0); %Monocytes 8.7 % (0.0-10.0); %Neutrophils 70.1 % (42.0-75.0); Hemoglobin 12.2 g/dL (14.0-18.0); Mean Corpuscular HGB CONC 33.4 g/dL (32.0-36.0); Mean Corpuscular Hemoglobin 31.7 pg (27.0-31.0); Mean Corpuscular Volume 94.7 fl (80.0-94.0); Mean Platelet Volume 8.5 fL (7.4-10.4); Platelet Count 240 thou/uL (130-400); RBC Distribution Width 11.8 % (11.5-14.5); Red Blood Cell (RBC) Count 3.85 mill/uL (4.70-6.10); White Blood Cell (WBC) Count 11.2 thou/uL (4.8-10.8)
[2017-07-22 04:37] LABS: Anion Gap 12 mmol/L (10-20); BUN (Urea Nitrogen) 12 mg/dL (8.4-25.7); Calc. Creatinine Clearance 100 mL/min (70-130); Calcium 8.9 mg/dL (7.8-10.44); Carbon Dioxide 23 mmol/L (23-31); Chloride 104 mmol/L (98-107); Estimated GFR-MDRD 83; Glucose 179 mg/dL (83-110); Potassium 4.1 mmol/L (3.5-5.1); Sodium 135 mmol/L (136-145)
[2017-07-22] MEDS: HumaLOG 300 UNITS/3 ML VIAL SC PRN ×2 (06:07→12:17)
[2017-07-22] MEDS: Aspirin 81 mg Enteric Coated Tablet PO SCH (08:51)
[2017-07-22] MEDS: Amlodipine 5 MG TAB PO SCH (08:52)
[2017-07-22] MEDS: Famotidine 20 MG TAB PO SCH (08:52)
[2017-07-22] MEDS: Lisinopril 10 MG TAB PO SCH (08:52)
[2017-07-22] MEDS: Clopidogrel Bisulfate 75 MG TAB PO SCH (08:52)
[2017-07-22] MEDS: Insulin Detemir 100 UNITS/ML 30 UNITS in Pre-Filled Syringe 1 EACH SC SCH (08:52)
[2017-07-22] MEDS: Atorvastatin Calcium 10 MG TAB PO SCH (08:52)
[2017-07-22] MEDS: Gabapentin 100 MG CAP PO SCH (08:52)
[2017-07-22] MEDS: metFORMIN 500 MG TAB PO SCH (08:52)
[2017-07-22] MEDS: Enoxaparin Sodium 40 MG/0.4 ML SYRINGE SC SCH (08:53)
[2017-07-22] MEDS: Glimepiride 4 MG TAB PO SCH (08:54)
[2017-07-22] MEDS: Vancomycin HCl 1.5 GM in Sodium Chloride 0.9% 250 ML 300 ML IVPB SCH (10:20)
[2017-07-22] MEDS: cefTRIAXone\\ROCEPHIN 2 GM in Sodium Chloride 0.9% 100 ML IVPB SCH (12:15)
--- NOTE | 2017-07-22 12:57 | PDOC.PN ---
- Subjective Encounter Start Date: 07/22/17 Encounter Start Time: 13:01 Subjective: No acute events overnight. -: No complaints today. - Objective Resuscitation Status: Resuscitation Status FULL:Full Resuscitation Vital Signs & Weight: Vital Signs (12 hours) Temp Pulse Resp Pulse Ox 07/22/17 08:00 98.3 F 76 16 98 Weight Admit Weight 207 lb 6.4 oz Weight 207 lb 14.4 oz I&O: 07/21/17 07/22/17 07/23/17 06:59 06:59 06:59 Intake Total 800 1250 Output Total 275 Balance 525 1250 Result Diagrams: 07/22/17 03:56 07/22/17 03:56 Additional Labs: Accuchecks 07/22/17 07/22/17 07/21/17 11:32 05:53 21:00 POC Glucose 198 H 175 H 196 H 07/21/17 16:00 POC Glucose 153 H Phys Exam - Physical Examination Constitutional: NAD HEENT: PERRLA, moist MMs, sclera anicteric Neck: supple, full ROM Respiratory: no rales, no rhonchi, clear to auscultation bilateral Cardiovascular: RRR, no significant murmur, no rub Gastrointestinal: soft, non-tender, no distention, positive bowel sounds Musculoskeletal: no edema, pulses present Dry gangrene phalanges (1st and second) Neurological: non-focal, moves all 4 limbs Psychiatric: normal affect, A&O x 3 Skin: no rash, normal turgor Dx/Plan (1) Gangrene of left foot Code(s): I96 - GANGRENE, NOT ELSEWHERE CLASSIFIED Status: Acute Comment: Has ischemic tissue loss/ Aortogram done 07/20/17. Being planned for hyperbaric O2 therapy (? inpatient v outpatient). Continue Vancomycin. Called Dr Alexandra regarding dispo ([phone] & [id number]); awaiting response (2) Peripheral vascular disease due to secondary diabetes Code(s): E13.51 - OTH DIABETES W DIABETIC PERIPHERAL ANGIOPATHY W/O GANGRENE Status: Chronic Comment: As above (3) Diabetes mellitus type II, uncontrolled Code(s): E11.65 - TYPE 2 DIABETES MELLITUS WITH HYPERGLYCEMIA Status: Chronic Qualifiers: Diabetes mellitus complication status: with circulatory complication Diabetes mellitus complication detail: with peripheral angiopathy with gangrene Diabetes mellitus terminal system operator insulin use: with terminal system operator use Qualified Code( s): E11.52 - Type 2 diabetes mellitus with diabetic peripheral angiopathy with gangrene; E11.65 - Type 2 diabetes mellitus with hyperglycemia; E11.65 - Type 2 diabetes mellitus with hyperglycemia; E11.65 - Type 2 diabetes mellitus with hyperglycemia; E11.65 - Type 2 diabetes mellitus with hyperglycemia; Z79.4 - detention (current) use of insulin; Z79.4 - intermediate school teacher (current) use of insulin; Z79.4 - intermediate school teacher (current) use of insulin; Z79.4 - detention (current) use of insulin Comment: Achieving better control. ISS, ADA, titrate Insulin regimen, dietitian counseling, Meftormin and glimepiride (4) Diabetic neuropathy Code(s): E11.40 - TYPE 2 DIABETES MELLITUS WITH DIABETIC NEUROPATHY, UNSP Status: Chronic Qualifiers: Diabetes mellitus type: type 2 Diabetes mellitus complication detail: diabetic polyneuropathy Qualified Code(s): E11.42 - Type 2 diabetes mellitus with diabetic polyneuropathy Comment: See above - Plan cont current plan of care, plan discussed w/ family, continue antibiotics, DVT proph w/lovenox * .
--- NOTE | 2017-07-22 23:11 | DIS ---
DATE OF ADMISSION: 07/18/2017 DATE OF DISCHARGE: 07/22/2017 DISCHARGE DIAGNOSES: Gangrene of the left foot, peripheral vascular disease due to secondary diabete s. SECONDARY DIAGNOSES: Type 2 diabetes mellitus, uncontrolled diabetic neuropathy coronary artery dise ase, cardiomyopathy, status post AICD placement, peripheral vascular disease, diabetic retinopathy, h yperlipidemia, hypertension, profound hearing loss. HISTORY OF PRESENT ILLNESS: A 71-year-old male who presented to [facility] wi th complaints of persistent left foot redness discoloration of the toes and heel with red streaks up to the lower leg. He reported that he had symptoms that began as a small scratch in the lower leg ap proximately 3 weeks prior to this evaluation at which point, he sought medical attention and was plac ed on oral antibiotic therapy. He has a significant history of diabetes mellitus, diagnosed in the 8 0s with poor control. His last hemoglobin was around 11. He was seen at [facility] where he received a single dose of IV antibiotic therapy and was continued on oral antibiotics, following up with his primary care provider. The patient noticed progression of his alteration to t he heel, expanding with some dark coloration as well as black areas of the great and second toe on th e left foot. He denies any fevers, chills, or constitutional symptoms. He was in the emergency room and had been placed on Cleocin for his home antibiotic regimen with worsening of his left foot swell ing and redness. He was eventually brought to the emergency room as x-ray due to concerns for his he alth. Plain radiographs done on 07/12 showed no osseous destruction. At the emergency room, he was hemodynamically stable. He had a chest x-ray, which showed no acute disease. Vascular ultrasound wa s also done and patient was started on IV Rocephin and vancomycin. He was admitted for further manag ement. HOSPITAL COURSE: He was evaluated by Cardiovascular Surgery where he had arteriogram on 07/20. He a lso had a TTE, which showed ejection fraction of 20% to 25%, and his pacemaker was present. Vascular ultrasound was also done and this showed no evidence of left lower extremity DVT. Patient improved while in hospital. He has achieved good glycemic control and showed no signs of infection. He was s een by the wound care team and they plan for future possible hyperbaric oxygen treatment. I spoke to Dr. Alexandra's before discharge and he recommends the patient to follow up with him in clinic in 2 week s. No acute intervention planned for now. Patient will be discharged on p.o. antibiotics and pain c ontrol with instructions to follow up with Cardiovascular Surgery in clinic. DISCHARGE MEDICATIONS: Aspirin 81 mg p.o. daily, clopidogrel 75 mg p.o. daily, amlodipine 5 mg p.o. daily, furosemide 4 mg p.o., gabapentin 300 mg p.o. t.i.d., glimepiride 4 mg p.o. daily, insulin glar gine 30 units subcutaneously daily, lisinopril 30 mg p.o. daily, lovastatin 40 mg p.o. daily, metform in 50 mg p.o. q.p.m., tramadol 50 mg p.o. q.4 hours. PHYSICAL EXAMINATION: He was examined on the day of discharge, refer to today's progress note for de tails. LABORATORY DATA: Serum chemistry essentially normal apart from hyperglycemia (glucose 179). Hematol ogrosas has WBC of 11.2, hemoglobin of 12.2 and platelets of 240. Imaging as reported in the [facility] they include chest x-ray, vascular ultrasound. PROCEDURES: Arteriogram, 07/20/2017. CONSULTS: Cardiovascular Surgery, wound care CONDITION AT DISCHARGE: Stable and improved. DIET: Heart healthy diabetic diet. CARE GOALS: Patient is to follow up with Cardiovascular Surgery 2 weeks after discharge. ACTIVITY: Resume as tolerated. Time of discharge 65 minutes.
== END 2017-07-22 16:30 | disposition home or self-care (01) | DRG 253 ==
LOC: ERS 09:02 → T4-A 14:08
PROVIDERS: ADMIT Family Medicine; ATTEND Family Medicine
PROC: B41D1ZZ Fluoroscopy of Aorta and Bilateral Lower Extremity Arteries using Low Osmolar Contrast (ICD-10-PCS; principal; 2017-07-20)
PROC: 047L3ZZ Dilation of Left Femoral Artery, Percutaneous Approach (ICD-10-PCS; 2017-07-20)
PROC: 047Q3ZZ Dilation of Left Anterior Tibial Artery, Percutaneous Approach (ICD-10-PCS; 2017-07-20)
PROC: 047N3ZZ Dilation of Left Popliteal Artery, Percutaneous Approach (ICD-10-PCS; 2017-07-20)
DX: E11.52 Type 2 diabetes mellitus with diabetic peripheral angiopathy with gangrene (principal); I96 Gangrene, not elsewhere classified; E11.42 Type 2 diabetes mellitus with diabetic polyneuropathy; L03.116 Cellulitis of left lower limb; E11.621 Type 2 diabetes mellitus with foot ulcer; I42.9 Cardiomyopathy, unspecified; L97.429 Non-pressure chronic ulcer of left heel and midfoot with unspecified severity; E11.65 Type 2 diabetes mellitus with hyperglycemia; L97.529 Non-pressure chronic ulcer of other part of left foot with unspecified severity; E11.319 Type 2 diabetes mellitus with unspecified diabetic retinopathy without macular edema; I25.10 Atherosclerotic heart disease of native coronary artery without angina pectoris; Z95.810 Presence of automatic (implantable) cardiac defibrillator; Z79.4 Long term (current) use of insulin; E78.5 Hyperlipidemia, unspecified; I10 Essential (primary) hypertension; Z95.1 Presence of aortocoronary bypass graft; Z79.84 Long term (current) use of oral hypoglycemic drugs; I77.1 Stricture of artery; Z79.82 Long term (current) use of aspirin
CPT/HCPCS: 36415; 36416; 37224; 37228; 71046; 76942; 80048; 80053; 80202; 83036; 83605; 85007; 85025; 85027; 85347; 87040; 87070; 87077; 87186; 87205; 93306; 96365; 96367; 99152; 99153; C1725; C1760; C1769; C1887; J0696; J1644; J1650; J1815; J2250; J3010; J3370; J7050

== ENCOUNTER 2017-07-29 12:31 | Emergency (ER) | payer MEDICARE | END 2017-07-29 13:05 | disposition home or self-care (01) | LOC: ERS 12:31 | DX: E11.52 Type 2 diabetes mellitus with diabetic peripheral angiopathy with gangrene (principal); I96 Gangrene, not elsewhere classified; I25.10 Atherosclerotic heart disease of native coronary artery without angina pectoris; E11.40 Type 2 diabetes mellitus with diabetic neuropathy, unspecified; E78.5 Hyperlipidemia, unspecified; I10 Essential (primary) hypertension | CPT/HCPCS: 99282 ==

== ENCOUNTER 2017-07-30 05:44 | Inpatient (IN) | payer MEDICARE ==
[2017-07-29 17:17] VITALS: BMI 34.1
[2017-07-30] MEDS ORDERED: Lidocaine 1% w/Epinephrine 1:200K 30 ML VIAL ONE (06:29)
[2017-07-30] MEDS ORDERED: Bupivacaine PF 0.5% 30 ML VIAL ONE (06:29)
[2017-07-30] MEDS ORDERED: Piperacillin/Tazobactam 3.375 GM in Sodium Chloride 0.9% 100 ML IVPB SCH (06:30)
[2017-07-30] MEDS ORDERED: Fentanyl 100 MCG/2 ML VIAL ONE (06:50)
[2017-07-30] MEDS ORDERED: Midazolam HCl 2 mg/2 ml Vial ONE (06:50)
[2017-07-30] MEDS ORDERED: Promethazine HCl 25 MG/ML VIAL IM PRN (08:23)
[2017-07-30] MEDS ORDERED: Ondansetron HCl/PF 4 MG/2 ML Vial IVP PRN (08:23)
[2017-07-30] MEDS ORDERED: Promethazine HCl 25 MG/ML VIAL SLOW IVP PRN (08:23)
[2017-07-30] MEDS ORDERED: Ondansetron ODT 4 MG TAB PO PRN (09:54)
[2017-07-30] MEDS ORDERED: Pepto Bismol Chew TAB PO PRN (09:54)
[2017-07-30] MEDS ORDERED: Non-Formulary Item 1 EACH (Insulin Glargine,Hum.Rec.Anlog 30 UNIT) SQ SCH (09:54)
[2017-07-30] MEDS ORDERED: Milk Of Magnesia 30 ML UDCUP PO PRN (09:54)
[2017-07-30] MEDS ORDERED: HYDROcodone/Acetaminophen 5/325 mg Tablet PO PRN (09:54)
[2017-07-30] MEDS ORDERED: Bisacodyl 5 MG TAB PO PRN (09:54)
[2017-07-30] MEDS ORDERED: Famotidine 20 MG TAB PO SCH (10:30)
[2017-07-30] MEDS ORDERED: Clopidogrel Bisulfate 75 MG TAB PO SCH (10:30)
[2017-07-30] MEDS ORDERED: Gabapentin 300 MG CAP PO SCH (10:30)
[2017-07-30] MEDS ORDERED: Lisinopril 20 MG TAB PO SCH (10:30)
[2017-07-30] MEDS ORDERED: Docusate 100 MG CAP PO SCH (10:30)
[2017-07-30] MEDS ORDERED: Aspirin 81 mg Enteric Coated Tablet PO SCH (10:30)
[2017-07-30] MEDS ORDERED: Amlodipine 5 MG TAB PO SCH (10:30)
[2017-07-30] MEDS ORDERED: Insulin Detemir 100 UNITS/ML 30 UNITS in Pre-Filled Syringe 1 EACH SC SCH (10:30)
[2017-07-30] MEDS ORDERED: Atorvastatin Calcium 10 MG TAB PO SCH (10:30)
[2017-07-30] MEDS ORDERED: Furosemide 40 MG TAB PO SCH (10:30)
--- NOTE | 2017-07-30 10:59 | OP ---
DATE OF PROCEDURE: 07/30/2017 PREOPERATIVE DIAGNOSIS: Gangrene of the left first, second and third toes and left heel. POSTOPERATIVE DIAGNOSIS: Gangrene of the left first, second and third toes and left heel. PROCEDURES: 1. I&D of the left heel. 2. I&D of the left third toe. 3. Partial amputation of the great toe and second toe on the left foot. SURGEON: Josué Alexandra M.D. ANESTHESIA: General endotracheal. ESTIMATED BLOOD LOSS: Less than 100. PROCEDURE IN DETAIL: After consent was obtained, the patient was brought to the operating room and p laced in the supine position on the operating room table. Appropriate anesthetic monitor was placed and general anesthesia induced. Left foot was prepped and draped in usual sterile fashion. The area of heel ulceration was debrided down through the fascia. The wound bled nicely and was packed. The third toe at the very tip was debrided down into the subcutaneous tissue and bled nicely. This was packed. The great toe, skin incision was made circumferentially at the level of the interphalangeal joint. The distal phalanx was removed sharply. The proximal phalanx was debrided proximally down to where it bled nicely. The subcutaneous tissues bled nicely. The wound was irrigated. Two separate mattress 3-0 nylon sutures were placed for closure. Second toe was managed in a similar fashion. T he distal phalanx was removed circumferentially. These middle phalanx was then debrided sharply down to good bleeding bone. Wound was irrigated and closed with a single 3-0 nylon mattress suture. Carl rile dressings were applied. The patient tolerated the procedure well, was awakened, extubated, and transferred to the recovery room in stable condition.
[2017-07-30] MEDS: Furosemide 40 MG TAB PO SCH (13:08)
[2017-07-30] MEDS ORDERED: Lidocaine 1% PF 5 ML VIAL ONE (14:15)
[2017-07-30] MEDS ORDERED: PROPOFOL 200 MG/20 ML VIAL ONE (14:15)
[2017-07-30] MEDS ORDERED: PHENYLEPHRINE-NS 100 MCG/ML 10 ML SYRINGE ONE (14:15)
[2017-07-30] MEDS ORDERED: ePHEDrine/0.9% NaCl/PF SYRINGE 50 mg/10 ml ONE (14:15)
[2017-07-30] MEDS ORDERED: Ondansetron HCl/PF 4 MG/2 ML Vial ONE (14:15)
[2017-07-30] MEDS: Piperacillin/Tazobactam 3.375 GM in Sodium Chloride 0.9% 100 ML IVPB SCH ×2 (14:48→20:53)
[2017-07-30] MEDS: Glimepiride 4 MG TAB PO SCH ×2 (14:49→17:38)
[2017-07-30] MEDS: Gabapentin 300 MG CAP PO SCH ×2 (14:49→20:52)
[2017-07-30] MEDS: metFORMIN 500 MG TAB PO SCH (17:36)
[2017-07-30] MEDS: Docusate 100 MG CAP PO SCH (20:52)
[2017-07-30] MEDS: traMADol HCl 50 MG TAB PO PRN (20:52)
[2017-07-30] MEDS: Famotidine 20 MG TAB PO SCH (20:52)
[2017-07-31] MEDS: Piperacillin/Tazobactam 3.375 GM in Sodium Chloride 0.9% 100 ML IVPB SCH ×4 (02:58→20:10)
[2017-07-31] MEDS: Gabapentin 300 MG CAP PO SCH ×3 (08:12→20:10)
[2017-07-31] MEDS: Amlodipine 5 MG TAB PO SCH (08:13)
[2017-07-31] MEDS: Glimepiride 4 MG TAB PO SCH (08:13)
[2017-07-31] MEDS: Aspirin 81 mg Enteric Coated Tablet PO SCH (08:13)
[2017-07-31] MEDS: Docusate 100 MG CAP PO SCH ×2 (08:13→20:10)
[2017-07-31] MEDS: Atorvastatin Calcium 10 MG TAB PO SCH (08:13)
[2017-07-31] MEDS: Furosemide 40 MG TAB PO SCH ×2 (08:13→13:25)
[2017-07-31] MEDS: Lisinopril 20 MG TAB PO SCH (08:14)
[2017-07-31] MEDS: Clopidogrel Bisulfate 75 MG TAB PO SCH (08:14)
[2017-07-31] MEDS: metFORMIN 500 MG TAB PO SCH ×2 (08:14→17:28)
[2017-07-31] MEDS: Famotidine 20 MG TAB PO SCH ×2 (08:14→20:10)
[2017-07-31] MEDS: Insulin Detemir 100 UNITS/ML 30 UNITS in Pre-Filled Syringe 1 EACH SC SCH (08:16)
[2017-07-31] MEDS ORDERED: Dextrose 50% Abboject 50 ML SYRINGE SLOW IVP PRN (11:04)
[2017-07-31] MEDS ORDERED: Dextrose 5% in Water 1,000 ML IV PRN (11:04)
[2017-07-31] MEDS: traMADol HCl 50 MG TAB PO PRN (13:28)
[2017-07-31] MEDS: Insulin Regular 300 UNITS/3 ML VIAL SC PRN (17:29)
[2017-08-01] MEDS: Piperacillin/Tazobactam 3.375 GM in Sodium Chloride 0.9% 100 ML IVPB SCH ×4 (01:49→21:00)
[2017-08-01] MEDS: Lisinopril 20 MG TAB PO SCH (08:49)
[2017-08-01] MEDS: Atorvastatin Calcium 10 MG TAB PO SCH (08:49)
[2017-08-01] MEDS: Docusate 100 MG CAP PO SCH ×2 (08:49→21:23)
[2017-08-01] MEDS: Aspirin 81 mg Enteric Coated Tablet PO SCH (08:49)
[2017-08-01] MEDS: Famotidine 20 MG TAB PO SCH ×2 (08:50→21:23)
[2017-08-01] MEDS: Insulin Detemir 100 UNITS/ML 30 UNITS in Pre-Filled Syringe 1 EACH SC SCH (08:51)
[2017-08-01] MEDS: Amlodipine 5 MG TAB PO SCH (08:51)
[2017-08-01] MEDS: Furosemide 40 MG TAB PO SCH ×2 (08:51→14:21)
[2017-08-01] MEDS: Glimepiride 4 MG TAB PO SCH (08:51)
[2017-08-01] MEDS: Gabapentin 300 MG CAP PO SCH ×3 (08:51→21:23)
[2017-08-01] MEDS: metFORMIN 500 MG TAB PO SCH ×3 (08:51→17:36)
[2017-08-01] MEDS: Clopidogrel Bisulfate 75 MG TAB PO SCH (08:51)
--- NOTE | 2017-08-01 09:23 | EKG ---
Test Reason : PREOP Blood Pressure : / mmHG Vent. Rate : 086 BPM Atrial Rate : 086 BPM P-R Int : 204 ms QRS Dur : 126 ms QT Int : 402 ms P-R-T Axes : 060 -26 105 degrees QTc Int : 481 ms Normal sinus rhythm Non-specific intra-ventricular conduction block Abnormal QRS-T angle, consider primary T wave abnormality Abnormal ECG When compared with ECG of 01-JUN-2011 13:29, Sinus rhythm has replaced Electronic ventricular pacemaker Confirmed by OLVIN SHELDON ([id number]) on 08/01/2017 9:23:05 AM Referred By: TOY Confirmed By:OLVIN SHELDON
[2017-08-01] MEDS ORDERED: metFORMIN 500 MG TAB PO SCH (10:00)
[2017-08-02] MEDS: Piperacillin/Tazobactam 3.375 GM in Sodium Chloride 0.9% 100 ML IVPB SCH ×4 (02:17→20:58)
[2017-08-02] MEDS: Aspirin 81 mg Enteric Coated Tablet PO SCH (08:55)
[2017-08-02] MEDS: Furosemide 40 MG TAB PO SCH ×2 (08:55→16:32)
[2017-08-02] MEDS: Docusate 100 MG CAP PO SCH ×2 (08:55→20:59)
[2017-08-02] MEDS: metFORMIN 500 MG TAB PO SCH ×2 (08:55→16:31)
[2017-08-02] MEDS: Amlodipine 5 MG TAB PO SCH (08:55)
[2017-08-02] MEDS: Gabapentin 300 MG CAP PO SCH ×3 (08:55→20:59)
[2017-08-02] MEDS: Famotidine 20 MG TAB PO SCH ×2 (08:56→20:59)
[2017-08-02] MEDS: Atorvastatin Calcium 10 MG TAB PO SCH (08:56)
[2017-08-02] MEDS: Glimepiride 4 MG TAB PO SCH (08:56)
[2017-08-02] MEDS: Lisinopril 20 MG TAB PO SCH (08:56)
[2017-08-02] MEDS: Clopidogrel Bisulfate 75 MG TAB PO SCH (08:56)
[2017-08-02] MEDS: Insulin Detemir 100 UNITS/ML 30 UNITS in Pre-Filled Syringe 1 EACH SC SCH (08:57)
[2017-08-03] MEDS: Piperacillin/Tazobactam 3.375 GM in Sodium Chloride 0.9% 100 ML IVPB SCH ×4 (02:52→20:13)
[2017-08-03] MEDS: Famotidine 20 MG TAB PO SCH ×2 (08:52→20:13)
[2017-08-03] MEDS: metFORMIN 500 MG TAB PO SCH ×2 (08:53→16:07)
[2017-08-03] MEDS: Lisinopril 20 MG TAB PO SCH (08:53)
[2017-08-03] MEDS: Docusate 100 MG CAP PO SCH ×2 (08:53→20:13)
[2017-08-03] MEDS: Clopidogrel Bisulfate 75 MG TAB PO SCH (08:55)
[2017-08-03] MEDS: Glimepiride 4 MG TAB PO SCH (08:55)
[2017-08-03] MEDS: Gabapentin 300 MG CAP PO SCH ×3 (08:55→20:13)
[2017-08-03] MEDS: Amlodipine 5 MG TAB PO SCH (08:55)
[2017-08-03] MEDS: Atorvastatin Calcium 10 MG TAB PO SCH (08:55)
[2017-08-03] MEDS: Furosemide 40 MG TAB PO SCH ×2 (08:56→16:07)
[2017-08-03] MEDS: Aspirin 81 mg Enteric Coated Tablet PO SCH (08:56)
[2017-08-03] MEDS: Insulin Detemir 100 UNITS/ML 30 UNITS in Pre-Filled Syringe 1 EACH SC SCH (09:27)
[2017-08-03] MEDS ORDERED: DULoxetine 30 MG CAP PO SCH (17:00)
[2017-08-04] MEDS: Piperacillin/Tazobactam 3.375 GM in Sodium Chloride 0.9% 100 ML IVPB SCH ×4 (01:18→20:19)
[2017-08-04] MEDS: Aspirin 81 mg Enteric Coated Tablet PO SCH (10:50)
[2017-08-04] MEDS: Atorvastatin Calcium 10 MG TAB PO SCH (10:50)
[2017-08-04] MEDS: Gabapentin 300 MG CAP PO SCH ×3 (10:50→20:19)
[2017-08-04] MEDS: Furosemide 40 MG TAB PO SCH ×2 (10:50→14:47)
[2017-08-04] MEDS: Amlodipine 5 MG TAB PO SCH (10:50)
[2017-08-04] MEDS: DULoxetine 30 MG CAP PO SCH (10:50)
[2017-08-04] MEDS: Famotidine 20 MG TAB PO SCH ×2 (10:50→20:19)
[2017-08-04] MEDS: Docusate 100 MG CAP PO SCH ×2 (10:50→20:20)
[2017-08-04] MEDS: Glimepiride 4 MG TAB PO SCH (10:51)
[2017-08-04] MEDS: Insulin Detemir 100 UNITS/ML 30 UNITS in Pre-Filled Syringe 1 EACH SC SCH (10:51)
[2017-08-04] MEDS: Lisinopril 20 MG TAB PO SCH (10:51)
[2017-08-04] MEDS ORDERED: Fentanyl 100 MCG/2 ML VIAL ONE ×2 (10:54→13:32)
[2017-08-04] MEDS ORDERED: Promethazine HCl 25 MG/ML VIAL SLOW IVP PRN (13:22)
[2017-08-04] MEDS ORDERED: Promethazine HCl 25 MG/ML VIAL IM PRN (13:22)
[2017-08-04] MEDS ORDERED: Ondansetron HCl/PF 4 MG/2 ML Vial IVP PRN (13:22)
--- NOTE | 2017-08-04 13:42 | OP ---
DATE OF PROCEDURE: 08/04/2017 PREOPERATIVE DIAGNOSIS: Gangrene, left foot. POSTOPERATIVE DIAGNOSIS: Gangrene, left foot. PROCEDURE: Left [id number] amputation. SURGEON: Dr. Josué Alexandra ESTIMATED BLOOD LOSS: 500 mL. PROCEDURE IN DETAIL: After consent was obtained, the patient was brought to the operating room and p laced in the supine position on the operating room table. Appropriate anesthetic monitor was placed and general endotracheal anesthesia induced. Left leg was prepped and draped in usual sterile fashio n. Skin incision was made for a posterior flap type incision. Dissection through the fascia was obt ained with electrocautery. Multiple bleeders were tied. Saphenous vein was divided and tied. The p eriosteum was elevated off of the tibia. The anterior compartment musculature was divided with elect rocautery. Tibia was divided with Gigli saw. Periosteum was elevated off the fibula and fibula was divided sharply. The remainder of the amputation was completed posteriorly with an amputation knife. Multiple bleeders were tied and cauterized. The wound was irrigated. Posterior flap was brought u p over the anterior tibia and it fit nicely. 0 Vicryl interrupted sutures were used to reapproximate the fascia. Layered closure was then performed and clips placed in the skin. Sterile dressings wer e applied. A 19 Malay Timmy drain was placed due to the patient being on Plavix and oozy from the uscular bed. Needle, sponge, and instrument counts were all correct at the end of the procedure.
[2017-08-04] MEDS ORDERED: Fentanyl 100 MCG/2 ML VIAL SLOW IVP PRN (14:11)
[2017-08-04] MEDS: Fentanyl 100 MCG/2 ML VIAL SLOW IVP PRN ×2 (14:46→17:02)
[2017-08-04] MEDS: HYDROcodone/Acetaminophen 5/325 mg Tablet PO PRN (14:47)
[2017-08-04] MEDS ORDERED: Lidocaine 1% PF 5 ML VIAL ONE (16:23)
[2017-08-04] MEDS ORDERED: PHENYLEPHRINE-NS 100 MCG/ML 10 ML SYRINGE ONE (16:23)
[2017-08-04] MEDS ORDERED: Ondansetron HCl/PF 4 MG/2 ML Vial ONE (16:23)
[2017-08-04] MEDS ORDERED: PROPOFOL 200 MG/20 ML VIAL ONE (16:23)
[2017-08-04] MEDS: metFORMIN 500 MG TAB PO SCH (16:51)
[2017-08-04] MEDS: traMADol HCl 50 MG TAB PO PRN (16:52)
[2017-08-05] MEDS: Piperacillin/Tazobactam 3.375 GM in Sodium Chloride 0.9% 100 ML IVPB SCH ×4 (01:36→21:14)
[2017-08-05] MEDS ORDERED: Clopidogrel Bisulfate 75 MG TAB ONE (05:46)
[2017-08-05] MEDS: Insulin Regular 300 UNITS/3 ML VIAL SC PRN ×2 (05:56→18:18)
[2017-08-05] MEDS: metFORMIN 500 MG TAB PO SCH ×2 (08:10→18:18)
[2017-08-05] MEDS: Amlodipine 5 MG TAB PO SCH (08:10)
[2017-08-05] MEDS: Docusate 100 MG CAP PO SCH ×2 (08:11→21:15)
[2017-08-05] MEDS: Gabapentin 300 MG CAP PO SCH ×3 (08:11→21:15)
[2017-08-05] MEDS: Atorvastatin Calcium 10 MG TAB PO SCH (08:11)
[2017-08-05] MEDS: DULoxetine 30 MG CAP PO SCH (08:11)
[2017-08-05] MEDS: Aspirin 81 mg Enteric Coated Tablet PO SCH (08:11)
[2017-08-05] MEDS: Furosemide 40 MG TAB PO SCH ×2 (08:11→14:49)
[2017-08-05] MEDS: Famotidine 20 MG TAB PO SCH ×2 (08:11→21:15)
[2017-08-05] MEDS: Lisinopril 20 MG TAB PO SCH (08:12)
[2017-08-05] MEDS: Glimepiride 4 MG TAB PO SCH (08:12)
[2017-08-05] MEDS: Insulin Detemir 100 UNITS/ML 30 UNITS in Pre-Filled Syringe 1 EACH SC SCH (11:44)
[2017-08-05] MEDS: HYDROcodone/Acetaminophen 5/325 mg Tablet PO PRN ×2 (14:49→21:15)
[2017-08-06] MEDS: Piperacillin/Tazobactam 3.375 GM in Sodium Chloride 0.9% 100 ML IVPB SCH (02:51)
[2017-08-06] MEDS: Lisinopril 20 MG TAB PO SCH (08:21)
[2017-08-06] MEDS: metFORMIN 500 MG TAB PO SCH ×2 (08:21→17:47)
[2017-08-06] MEDS: Aspirin 81 mg Enteric Coated Tablet PO SCH (08:21)
[2017-08-06] MEDS: Glimepiride 4 MG TAB PO SCH (08:21)
[2017-08-06] MEDS: Furosemide 40 MG TAB PO SCH ×2 (08:21→15:38)
[2017-08-06] MEDS: Gabapentin 300 MG CAP PO SCH ×3 (08:22→20:06)
[2017-08-06] MEDS: Famotidine 20 MG TAB PO SCH ×2 (08:22→20:06)
[2017-08-06] MEDS: Amlodipine 5 MG TAB PO SCH (08:22)
[2017-08-06] MEDS: Atorvastatin Calcium 10 MG TAB PO SCH (08:22)
[2017-08-06] MEDS: DULoxetine 30 MG CAP PO SCH (08:22)
[2017-08-06] MEDS: Docusate 100 MG CAP PO SCH ×2 (08:22→20:07)
[2017-08-06] MEDS: Insulin Detemir 100 UNITS/ML 30 UNITS in Pre-Filled Syringe 1 EACH SC SCH (09:45)
[2017-08-06] MEDS: traMADol HCl 50 MG TAB PO PRN (17:47)
[2017-08-07] MEDS: Aspirin 81 mg Enteric Coated Tablet PO SCH (10:10)
[2017-08-07] MEDS: metFORMIN 500 MG TAB PO SCH ×2 (10:10→17:58)
[2017-08-07] MEDS: Lisinopril 20 MG TAB PO SCH (10:10)
[2017-08-07] MEDS: Gabapentin 300 MG CAP PO SCH ×3 (10:10→19:52)
[2017-08-07] MEDS: Famotidine 20 MG TAB PO SCH ×2 (10:11→19:53)
[2017-08-07] MEDS: DULoxetine 30 MG CAP PO SCH (10:11)
[2017-08-07] MEDS: Glimepiride 4 MG TAB PO SCH (10:11)
[2017-08-07] MEDS: traMADol HCl 50 MG TAB PO PRN (10:11)
[2017-08-07] MEDS: Amlodipine 5 MG TAB PO SCH (10:11)
[2017-08-07] MEDS: Furosemide 40 MG TAB PO SCH ×2 (10:11→15:45)
[2017-08-07] MEDS: Atorvastatin Calcium 10 MG TAB PO SCH (10:11)
[2017-08-07] MEDS: Insulin Detemir 100 UNITS/ML 30 UNITS in Pre-Filled Syringe 1 EACH SC SCH (10:12)
[2017-08-07] MEDS: Docusate 100 MG CAP PO SCH ×2 (15:27→19:53)
[2017-08-08] MEDS: Glimepiride 4 MG TAB PO SCH (08:54)
[2017-08-08] MEDS: metFORMIN 500 MG TAB PO SCH (08:54)
[2017-08-08] MEDS: Aspirin 81 mg Enteric Coated Tablet PO SCH (08:55)
[2017-08-08] MEDS: Amlodipine 5 MG TAB PO SCH (08:55)
[2017-08-08] MEDS: Gabapentin 300 MG CAP PO SCH (08:55)
[2017-08-08] MEDS: Furosemide 40 MG TAB PO SCH (08:55)
[2017-08-08] MEDS: Docusate 100 MG CAP PO SCH (08:56)
[2017-08-08] MEDS: Lisinopril 20 MG TAB PO SCH (08:56)
[2017-08-08] MEDS: Atorvastatin Calcium 10 MG TAB PO SCH (08:56)
[2017-08-08] MEDS: DULoxetine 30 MG CAP PO SCH (08:56)
[2017-08-08] MEDS: Famotidine 20 MG TAB PO SCH (08:56)
[2017-08-08] MEDS: Insulin Detemir 100 UNITS/ML 30 UNITS in Pre-Filled Syringe 1 EACH SC SCH (08:59)
[2017-08-08 12:22] VITALS: BP 131/53; TEMP 97.5
--- NOTE | 2017-08-08 18:46 | DIS ---
DATE OF ADMISSION: 07/30/2017 DATE OF DISCHARGE: 08/08/2017 PRINCIPAL DIAGNOSIS: Peripheral vascular disease with dry gangrenous changes, left foot. PROCEDURES PERFORMED: I&D of left heel, I&D of left third toe and partial amputation of first and se cond toe on the left foot, 07/30/2017; and left below knee amputation, 08/04/2017. HISTORY OF PRESENT ILLNESS AND HOSPITAL COURSE: The patient is a 71-year-old diabetic man who not qu ite a month ago, presented with a 1-2 months' duration of pain in his left foot. He began developing some ulceration on the heel and then similar development of ulceration and then eschars on the tips of the toes. He had a severe outflow disease and underwent balloon angioplasty of multiple vessels a nd an attempt for limb salvage. At that time he had improved perfusion, but failed to adequately hea l debrided tissue. The foot was felt to not truly be salvageable and that he would have a more usefu l level of amputation at below knee level than attempting transmetatarsal level. He was converted to that level and after a few days, was transferred to the rehabilitation unit.
== END 2017-08-08 15:05 | DRG 240 ==
LOC: SDC 05:44 → SURG B 08:13
PROVIDERS: ADMIT Thoracic Surgery (Cardiothoracic Vascular Surgery); ATTEND Thoracic Surgery (Cardiothoracic Vascular Surgery)
PROC: 0JBR0ZZ Excision of Left Foot Subcutaneous Tissue and Fascia, Open Approach (ICD-10-PCS; 2017-07-30)
PROC: 0Y6Q0Z1 Detachment at Left 1st Toe, High, Open Approach (ICD-10-PCS; 2017-07-30)
PROC: 0Y6S0Z2 Detachment at Left 2nd Toe, Mid, Open Approach (ICD-10-PCS; 2017-07-30)
PROC: 0Y6J0Z3 Detachment at Left Lower Leg, Low, Open Approach (ICD-10-PCS; principal; 2017-08-04)
DX: I70.243 Atherosclerosis of native arteries of left leg with ulceration of ankle (principal); I70.262 Atherosclerosis of native arteries of extremities with gangrene, left leg; E11.42 Type 2 diabetes mellitus with diabetic polyneuropathy; I96 Gangrene, not elsewhere classified; E11.52 Type 2 diabetes mellitus with diabetic peripheral angiopathy with gangrene; E11.65 Type 2 diabetes mellitus with hyperglycemia; E78.2 Mixed hyperlipidemia; I10 Essential (primary) hypertension; I25.10 Atherosclerotic heart disease of native coronary artery without angina pectoris; Z79.84 Long term (current) use of oral hypoglycemic drugs; Z79.82 Long term (current) use of aspirin; Z95.1 Presence of aortocoronary bypass graft; E78.5 Hyperlipidemia, unspecified
CPT/HCPCS: 36416; 88307; 88311; 93005; 93010; 99282; A4216; G8978-GP-CM; G8979-GP-CK; G8987-GO-CK; G8988-GO-CJ; J1815; J2001; J2250; J2405; J2543; J2704; J3010; J7050; L8440; S0020

== ENCOUNTER 2018-05-19 13:09 | Outpatient (CLI) | payer MEDICARE ==
[2018-05-19 14:35] LABS: #Basophils 0.1 thou/uL (0.0-0.2); #Eosinphils 0.3 thou/uL (0.0-0.7); #Lymphocytes 3.4 thou/uL (1.20-3.40); #Monocytes 0.8 thou/uL (0.11-0.59); #Neutrophils 5.3 thou/uL (1.40-6.50); %Basophils 0.6 % (0.0-1.0); %Eosinophils 3.1 % (0.0-10.0); %Lymphocytes 34.4 % (21.0-51.0); %Monocytes 8.1 % (0.0-10.0); %Neutrophils 53.7 % (42.0-75.0); Hemoglobin 13.4 g/dL (14.0-18.0); Mean Corpuscular HGB CONC 33.7 g/dL (32.0-36.0); Mean Corpuscular Hemoglobin 30.6 pg (27.0-31.0); Mean Corpuscular Volume 90.8 fL (78.0-98.0); Mean Platelet Volume 8.7 fL (7.4-10.4); Platelet Count 206 thou/uL (130-400); RBC Distribution Width 12.3 % (11.5-14.5); Red Blood Cell (RBC) Count 4.39 mill/uL (4.70-6.10); White Blood Cell (WBC) Count 9.8 thou/uL (4.8-10.8)
[2018-05-19 14:59] LABS: Anion Gap 14 mmol/L (10-20); BUN (Urea Nitrogen) 15 mg/dL (8.4-25.7); Calc. Creatinine Clearance 0 mL/min (70-130); Calcium 10.3 mg/dL (7.8-10.44); Carbon Dioxide 21 mmol/L (23-31); Chloride 104 mmol/L (98-107); Estimated GFR-MDRD 58; Glucose 267 mg/dL (83-110); Potassium 4.1 mmol/L (3.5-5.1); Sodium 135 mmol/L (136-145)
== END 2018-05-19 13:10 | disposition home or self-care (01) ==
LOC: LABBT 13:09
PROVIDERS: ATTEND Thoracic Surgery (Cardiothoracic Vascular Surgery)
DX: Z01.812 Encounter for preprocedural laboratory examination (principal); I73.9 Peripheral vascular disease, unspecified
CPT/HCPCS: 80048; 85025

== ENCOUNTER → 2018-05-23 | Day surgery (SDC) | payer MEDICARE ==
[2018-05-19 13:49] VITALS: BMI 33.2
[~2018-05-23] MED LIST: Fentanyl 100 MCG/2 ML VIAL ONE; Heparin 10,000 UNITS/1 ML VIAL ONE; Iopamidol 370 76% 50 ML VIAL FS ONE; Lidocaine 1% (PF) 30 ML VIAL ONE; Midazolam HCl 2 mg/2 ml Vial ONE
--- NOTE | 2018-05-23 13:48 | OP ---
DATE OF PROCEDURE: 05/23/2018 PREOPERATIVE DIAGNOSIS: Peripheral vascular disease. POSTOPERATIVE DIAGNOSIS: Peripheral vascular disease. PROCEDURES PERFORMED: 1. Bilateral ultrasound-guided arterial access. 2. Left external iliac artery angiogram. 3. Abdominal aortogram x2. 4. Right common femoral artery angiogram performed in an antegrade fashion. FINDINGS: Normal aorta and iliac systems. The aortic bifurcation was very steep and unable to be crossed from left to right. Therefore, antegrade stick was used on the right to evaluate the right leg. The right common femoral, though heavy calcified, was widely patent. Superficial femoral and popliteal arteries were very widely patent. The trifurcation has a patent anterior tibial artery, which runs to the foot and then terminates in small vessels within the foot. The posterior tibial and peroneal arteries were occluded at the trifurcation. DESCRIPTION OF PROCEDURE: After consent was obtained, the patient was brought to the flue dust laborer, placed in supine position on the flue dust laborer table. Appropriate central line was placed. The patient was given 1 mg of Versed and 25 mcg of fentanyl. The left groin was anesthetized using ultrasound guidance with 1% lidocaine. Using ultrasound guidance, percutaneous access to common femoral artery was obtained. The micropuncture sheath was passed and then hand-injected arteriogram performed through the micropuncture sheath with the tip in the external iliac artery. Bentson guidewire was then placed, and the sheath was exchanged for a 5-Kosovan sheath. The Contra catheter was passed in the upper abdominal aorta. Hand-injected aortograms performed, showing no evidence of aortic occlusive disease. The aortic bifurcation was very steep. The catheter was brought back to the aortic bifurcation and magnified view was obtained. This was used then to cross the bifurcation with a Contra catheter and Bentson wire. The wire would not pass far enough to allow a catheter to espinoza. Multiple catheters, guidewires, and sheaths were used in attempt to cross the bifurcation, which was unsuccessful. These were all removed and sheath left in place and flushed with heparinized saline. The right groin was then anesthetized using ultrasound guidance for an antegrade stick. After 1% lidocaine had been injected, the micropuncture sheath was placed in the common femoral artery. Digital angiography was used to espinoza contrast from groin to foot. The heavily-calcified common femoral, superficial femoral, and profunda arteries were widely patent. There was some disease within the distal superficial femoral and popliteal arteries, but they were widely patent. Trifurcation was patent. The posterior tibial and peroneal arteries were occluded at the trifurcation. Anterior tibial artery was patent to the foot. Digital subtraction angiography was used to evaluate the [id number] arteries. The right-sided micro sheath was removed and manual pressure held for hemostasis. The left sheath was removed over the Bentson wire and the ProGlide was placed and deployed with good hemostasis. The patient tolerated the procedure well, was transferred to recovery area and home later today. Job ID: [id number]
== END ==
LOC: CCL 05:48
PROVIDERS: ATTEND Thoracic Surgery (Cardiothoracic Vascular Surgery)
PROC: B41F1ZZ Fluoroscopy of Right Lower Extremity Arteries using Low Osmolar Contrast (ICD-10-PCS; principal; 2018-05-23)
PROC: B4101ZZ Fluoroscopy of Abdominal Aorta using Low Osmolar Contrast (ICD-10-PCS; 2018-05-23)
DX: E11.51 Type 2 diabetes mellitus with diabetic peripheral angiopathy without gangrene (principal); I70.201 Unspecified atherosclerosis of native arteries of extremities, right leg; I70.243 Atherosclerosis of native arteries of left leg with ulceration of ankle; L97.329 Non-pressure chronic ulcer of left ankle with unspecified severity; I25.10 Atherosclerotic heart disease of native coronary artery without angina pectoris; I10 Essential (primary) hypertension; E78.2 Mixed hyperlipidemia; Z79.4 Long term (current) use of insulin; Z79.82 Long term (current) use of aspirin; Z79.899 Other long term (current) drug therapy
CPT/HCPCS: 36140; 75630; 75710; 76942; 99152; 99153; C1760; C1769; C1887; J1644; J2001; J2250; J3010

== ENCOUNTER 2018-06-27 11:41 | Day surgery (SDC) | payer MEDICARE ==
[2018-06-24 13:24] VITALS: BMI 31.9
[2018-06-27] MEDS ORDERED: PROPOFOL 200 MG/20 ML VIAL ONE (14:57)
--- NOTE | 2018-06-28 07:59 | OP ---
DATE OF PROCEDURE: 06/27/2018 PREOPERATIVE DIAGNOSES: 1. Epigastric pain. 2. Right lower quadrant pain. 3. Chronic diarrhea. DESCRIPTION OF PROCEDURE: After informed consent was obtained, the patient was placed in left lateral decubitus position. Anesthesia was administered per the Anesthesia Department. Forward-viewing endoscope was inserted into the esophagus under direct visualization with ease and passed to the second portion of the duodenum with ease. Second portion of duodenum and duodenal bulb were normal. Random biopsies were taken from the second portion of the duodenum. The pylorus, antrum, body, fundus, and cardia were normal. Retroflexion in the stomach was normal. The esophagus was normal throughout. ASSESSMENT: Normal esophagogastroduodenoscopy. RECOMMENDATIONS: 1. Await histopathology. 2. Proceed with colonoscopy. DESCRIPTION OF PROCEDURE: After informed consent was obtained, the patient was placed in left lateral decubitus position. Anesthesia was administered per the Anesthesia Department. Forward-viewing endoscope was inserted in the rectum after perianal inspection and rectal exam were normal. It was passed to the cecum and into the ileum with ease. The ileum, ileocecal valve, and appendiceal orifice were normal. The prep was excellent. The ascending, transverse, descending, sigmoid, and rectum were normal except for diffuse diverticulosis coli. Random biopsies were taken from the colon to rule out microscopic colitis. In the rectum, a small single ulcer was noted in the distal rectum. Biopsies were taken of that. ASSESSMENT: 1. Small distal rectal ulcer - status post biopsy. 2. Diffuse diverticulosis coli. 3. Otherwise normal ileocolonoscopy. RECOMMENDATIONS: 1. Await histopathology. 2. Follow up in the office in 1 months' time. Job ID: [id number]
== END 2018-06-27 15:25 | disposition home or self-care (01) ==
LOC: SDC 11:41
PROVIDERS: ATTEND Internal Medicine Gastroenterology
PROC: 0DBP8ZX Excision of Rectum, Via Natural or Artificial Opening Endoscopic, Diagnostic (ICD-10-PCS; principal; 2018-06-27)
PROC: 0DBE8ZX Excision of Large Intestine, Via Natural or Artificial Opening Endoscopic, Diagnostic (ICD-10-PCS; 2018-06-27)
PROC: 0DB98ZX Excision of Duodenum, Via Natural or Artificial Opening Endoscopic, Diagnostic (ICD-10-PCS; 2018-06-27)
DX: K51.20 Ulcerative (chronic) proctitis without complications (principal); K52.9 Noninfective gastroenteritis and colitis, unspecified; K57.30 Diverticulosis of large intestine without perforation or abscess without bleeding; R10.13 Epigastric pain; Z79.4 Long term (current) use of insulin; Z79.899 Other long term (current) drug therapy
CPT/HCPCS: 36416; 88305; J2704

== ENCOUNTER 2019-03-07 10:25 | Emergency (ER) | payer MEDICARE ==
[2019-03-07 11:04] LABS: #Eosinphils 0.1 thou/uL (0.0-0.7); #Lymphocytes 1.2 thou/uL (1.20-3.40); #Neutrophils 8.3 thou/uL (1.40-6.50); %Basophils 0.1 % (0.0-1.0); %Eosinophils 0.7 % (0.0-10.0); %Lymphocytes 11.3 % (21.0-51.0); %Monocytes 9.4 % (0.0-10.0); %Neutrophils 78.4 % (42.0-75.0); Hemoglobin 12.9 g/dL (14.0-18.0); Mean Corpuscular HGB CONC 34.4 g/dL (32.0-36.0); Mean Corpuscular Hemoglobin 31.6 pg (27.0-31.0); Mean Corpuscular Volume 91.7 fL (78.0-98.0); Mean Platelet Volume 8.5 fL (7.4-10.4); Platelet Count 187 thou/uL (130-400); RBC Distribution Width 11.8 % (11.5-14.5); White Blood Cell (WBC) Count 10.5 thou/uL (4.8-10.8)
[2019-03-07 11:19] LABS: ALT (SGPT) 15 U/L (8-55); AST (SGOT) 18 U/L (5-34); Albumin 3.9 g/dL (3.4-4.8); Alkaline Phosphatase 29 U/L (40-150); Anion Gap 15 mmol/L (10-20); BUN (Urea Nitrogen) 18 mg/dL (8.4-25.7); Calc. Creatinine Clearance 0 mL/min (70-130); Calcium 9.3 mg/dL (7.8-10.44); Carbon Dioxide 25 mmol/L (23-31); Chloride 92 mmol/L (98-107); Estimated GFR-MDRD 66; Globulin 3.2 g/dL (2.4-3.5); Glucose 248 mg/dL (83-110); Potassium 4.2 mmol/L (3.5-5.1); Protein, Total 7.1 g/dL (5.8-8.1); Sodium 128 mmol/L (136-145)
[2019-03-07 11:25] LABS: Bacteria/HPF 2+ HPF (None Seen); Bilirubin Negative (Negative); Blood, Urine 2+ (Negative); Clarity Turbid (Clear); Glucose, Urine (Dipstick) Greater than 1000 mg/dL (Negative); Leukocyte 500 Leu/uL (Negative); Nitrite 1+ (Negative); Protein, Urine (Dipstick) 200 mg/dL (Neg-Trace); RBC/HPF Greater than 50 HPF (0-3); Squamous Epithelial None Seen HPF (0-3); Urobilinogen Normal mg/dL (Less than 2); WBC/HPF Greater than 50 HPF (0-3)
--- NOTE | 2019-03-07 12:29 | CT ---
CT ABDOMEN AND PELVIS WITH IV CONTRAST: HISTORY: Lower abdominal pain and fever COMPARISON: None FINDINGS: Minimal dependent changes are seen in the lung bases. No calcified gallstones are identified. The breezy er demonstrates decreased attenuation compared with the spleen, consistent with fatty infiltration. The spleen pancreas adrenal glands and kidneys are normal. No free air, free fluid or lymphadenopathy seen in the abdomen or pelvis. There are scattered colonic diverticulosis without evidence of diverticulitis. An abnormal appendix is not visualized. The small bowel loops are not abnormally dilated. The prostate is enlarged. There is thickening of the wall of the urinary bladder predominantly on the posterior aspect. A penile implant is seen. There are vascular calcifications without evidence of aneurysmal dilatation of the abdominal aorta. There are degenerative changes in the spine. There is c hronic compression of L1. There is a small fat-containing right inguinal hernia. IMPRESSION: 1. Fatty liver 2. Prostatic enlargement 3. Urinary bladder wall thickening. Clinically correlate for cystitis and evaluate with cystoscopy. 4. Colonic diverticulosis
== END 2019-03-07 12:56 | disposition home or self-care (01) ==
LOC: ERS 10:25
DX: N39.0 Urinary tract infection, site not specified (principal); I25.10 Atherosclerotic heart disease of native coronary artery without angina pectoris; E11.40 Type 2 diabetes mellitus with diabetic neuropathy, unspecified; E78.5 Hyperlipidemia, unspecified; I10 Essential (primary) hypertension
CPT/HCPCS: 36415; 74177; 80053; 81003; 81015; 83690; 85025